=== PATIENT | male | born 1955 | race Caucasian/White ===

== ENCOUNTER 2019-07-07 09:20 | Outpatient (REF) | payer OTHER, SELFPAY ==
[2019-07-07 14:26] LABS: Anion Gap 6.7 mmol/L (3-11); BUN 15 mg/dL (7-18); CO2 31.3 mmol/L (21.0-32.0); CREATININE 1.18 mg/dL (0.70-1.30); Calcium 8.8 mg/dL (8.5-10.1); Calculated LDL 150 mg/dL; Chloride 106 mmol/L (98-107); Cholesterol 218 mg/dL (50-200); Ferritin 164 ng/mL (8-388); Glucose 97 mg/dL (70-100); HDL Cholesterol 49 mg/dL (40-60); Potassium 4.9 mmol/L (3.5-5.1); Sodium 144 mmol/L (136-145); TSH 0.77 uIU/mL (0.36-3.74); Triglyceride 97 mg/dL (30-150)
== END 2019-07-07 09:40 ==
LOC: NCHCN 09:20
PROVIDERS: PCP Internal Medicine; Visit Provider Internal Medicine
DX: Z00.00 Encounter for general adult medical examination without abnormal findings (principal); E78.00 Pure hypercholesterolemia, unspecified; E66.3 Overweight; M25.561 Pain in right knee; F51.04 Psychophysiologic insomnia
CPT/HCPCS: 80048; 80061; 82728; 84443

== ENCOUNTER 2019-07-10 14:51 | Outpatient (CLI) | payer OTHER, SELFPAY ==
--- NOTE | 2019-07-10 14:39 | DI.RAD_ITS ---
EXAM: XR KNEE RT 3V AP,LAT,VAN INDICATION: right knee pain. COMPARISON: No exams were available for comparison TECHNIQUE: 2D digital imaging was performed. FINDINGS: Three views were obtained. There is marked narrowing of the medial tibiofemoral cartilaginous joint space. Possible small loose joint body seen posteriorly. No other significant abnormality seen. IMPRESSION:
== END 2019-07-10 15:11 ==
PROVIDERS: PCP Internal Medicine; Visit Provider Physician Assistant
DX: M25.561 Pain in right knee (principal); M23.41 Loose body in knee, right knee
CPT/HCPCS: 73562

== ENCOUNTER 2021-03-31 18:46 | Outpatient (REF) | payer OTHER, SELFPAY ==
[2021-04-01 16:59] LABS: PSA, Screening 0.7 ng/mL (0.0-4.5)
== END 2021-03-31 18:47 | disposition home or self-care (01) ==
LOC: NCHCN 18:46
PROVIDERS: PCP Internal Medicine; Visit Provider Internal Medicine
DX: Z00.00 Encounter for general adult medical examination without abnormal findings (principal); Z12.5 Encounter for screening for malignant neoplasm of prostate
CPT/HCPCS: 84153

== ENCOUNTER 2021-11-07 17:02 | Outpatient (REF) | payer OTHER, SELFPAY ==
[2021-11-09 12:35] LABS: COVID-19 RT-PCR UVMMC Result Negative (Negative)
== END 2021-11-07 17:03 | disposition home or self-care (01) ==
LOC: NCHCN 17:02
PROVIDERS: PCP Internal Medicine; Visit Provider Family Medicine
DX: Z20.822 Contact with and (suspected) exposure to COVID-19 (principal); J40 Bronchitis, not specified as acute or chronic
CPT/HCPCS: U0003

== ENCOUNTER 2022-02-11 11:21 | Outpatient (REF) | payer OTHER, SELFPAY ==
[2022-02-11 15:02] LABS: Abs Immature Grans 0.01 10^3/uL (0.0-0.06); Absolute Basophil Count 0.05 10^3/uL (0.0-0.2); Absolute Eosinophil Count 0.39 10^3/uL (0.0-0.7); Absolute Lymphocyte Count 1.75 10^3/uL (1.2-3.4); Absolute Monocyte Count 0.56 10^3/uL (0.1-0.8); Absolute Neutrophil Count 3.07 10^3/uL (1.2-6.7); Basophils % 0.9; Eosinophils % 6.7; HCT 44.2 % (40.0-50.0); HGB 14.4 g/dL (13.5-17.5); Immature Grans % 0.2; MCHC 32.6 % (32.0-36.0); MCV 95 fL (80-95); MPV 10.5 fL (8.0-11.0); Monocytes % 9.6; Neutrophils % 52.6; Platelet Count 285 10^3/uL (130-400); RBC 4.64 10^6/uL (4.36-5.78); RDW 12.3 % (11.8-14.1); RDW-SD 42.3 fL; WBC 5.83 10^3/uL (4.4-10.8)
[2022-02-11 15:07] LABS: ESR 13 mm/hr (0-20)
[2022-02-11 15:52] LABS: ALT 22 U/L (16-63); AST 14 U/L (15-37); Albumin 3.8 g/dL (3.4-5.0); Alkaline Phosphatase 73 U/L (46-116); Anion Gap 6.4 mmol/L (3-11); BUN 11 mg/dL (7-18); Bilirubin, Total 0.5 mg/dL (0.2-1.0); CO2 29.6 mmol/L (21.0-32.0); Calcium 8.6 mg/dL (8.5-10.1); Chloride 106 mmol/L (98-107); Glucose 96 mg/dL (74-106); Potassium 4.8 mmol/L (3.5-5.1); Sodium 142 mmol/L (136-145); Total Protein 6.9 g/dL (6.4-8.2)
== END 2022-02-11 11:22 | disposition home or self-care (01) ==
LOC: NCHCN 11:21
PROVIDERS: PCP Family Medicine; Visit Provider Family Medicine
DX: R19.7 Diarrhea, unspecified (principal)
CPT/HCPCS: 80053; 85652; 85025

== ENCOUNTER 2022-02-12 07:59 | Outpatient (REF) | payer OTHER, SELFPAY ==
[2022-02-12 12:29] LABS: C Diff PCR Negative (Negative)
== END 2022-02-12 08:00 | disposition home or self-care (01) ==
LOC: NCHCN 07:59
PROVIDERS: PCP Family Medicine; Visit Provider Family Medicine
DX: R19.7 Diarrhea, unspecified (principal)
CPT/HCPCS: 87329; 87493; 83630; 87177

== ENCOUNTER 2022-11-03 08:50 | Outpatient (REF) | payer BC, SELFPAY ==
--- OUTSIDE RECORDS SUMMARY | 2022-11-03 08:55 | XMS_ITS ---
:1955 Author Organization [facility] Address [address], [place] [id number] Care Team Providers Name Role Phone UmanzorErik mccarthy Unavailable Unavailable PROBLEMS Type Condition ICD9-CM [id number] Onset Condition SNOMED Cod e Code Code Dates Status Problem ALLERGIC RHINITIS 477.8 Active 61 499879 NEC Problem Yeast infection 112.9 Active 7804 8006 Problem Gastroesophageal 530.81 Active 235 672187 reflux disease Problem RHINITIS DUE TO 477.0 Active 2171 9001 POLLEN Problem Allergic rhinitis 477.2 Active 15 [id number] due to cat or dog Problem Postnasal drip 784.91 Active 82787 007 Problem ALLERGIC RHINITIS 477.9 Active 61 104741 NOS Problem Shortness of breath R06.02 Active 928942419 Problem Allergic rhinitis J30.1 Active due to pollen, unspecified seasonality Problem GERD 530.81 Active (gastroesophageal reflux disease) Problem Acute allergic J30.1 Active rhinitis due to pollen Problem 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 989610028 neuronitis Problem Allergic rhinitis J30.1 Active 21 566576 due to pollen Problem Postnasal drip R09.82 Active 41791 007 Problem Tinnitus H93.19 Active 26059849 Problem Coated tongue K14.3 Active 535242 000 ALLERGIES Substance Reaction Event Type Date Status ENVIRONMENTAL Unknown Non Drug Allergy Dec, Active ENCOUNTERS Encounter Location Date Diagnosis N E [address], Oct, Allerg ic rhinitis due to [facility] [address] polle [address] J30.[address] [facility] [id number] [place] [address], Oct, Allerg ic rhinitis due to [facility] [address] polle n, unspecified [facility] [place] seasonality J30.1 [id number] N E [address], Oct, [facility] [address] [facility] [id number] N E [address], Aug, Allerg ic rhinitis due to [facility] [address] polle n J30.1 [facility] [id number] N E [address], Aug, Allerg ic rhinitis due to [facility] [address] polle n, unspecified [facility] [place] seasonality J30.1 [id number] N [place] [address], Aug, [facility] [address] [facility], [place] [id number] N E [address], Aug, Allerg ic rhinitis due to [facility] [address] polle n, unspecified [facility] seasonality J30.1 [id number] N [place] [address], Aug, [facility] [address] [facility], [place] [id number] [place] [address], Jul, Allerg ic rhinitis due to [facility] [address] polle n, unspecified [facility] seasonality J30.1 [id number] N E [address], Jun, Allerg ic rhinitis due to [facility] [address] polle n J30.1 Phan Chavez [place] [id number] [address] [place] [address], Jun, Allerg ic rhinitis due to [facility] [address] polle n, unspecified [facility] seasonality J30.1 [id number] N [place] [address], Jun, [facility] [address] [facility] [place] [id number] [place] [address], May, Allerg ic rhinitis due to [facility] [address] polle n J30.1 [facility] [id number] N E [address], Apr, Allerg ic rhinitis due to [facility] [place] [address] [address] polle n, unspecified [facility] seasonality J30.1 [id number] N E [address], Apr, [facility] [address] [facility] [place] [id number] N [place] [address], February, Allerg ic rhinitis due to [facility] [address] polle n J30.1 [facility] [id number] N [place] [address], February, Allerg ic rhinitis due to [facility] [place] [address] [address] polle n, unspecified [facility] seasonality J30.1 [id number] N [address] [place] [address], February, [facility] [address] [place] [id number] [address] [place] [address], Jan, Allerg ic rhinitis due to [facility] [address] polle n, unspecified [facility] [place] seasonality J30.1 [id number] N [address] [place] [address], Jan, Allerg ic rhinitis due to [facility] [address] polle n J30.1 [facility] [place] [id number] N [place] [address], Dec, Allerg ic rhinitis due to [facility] [address] polle n, unspecified Phan Chavez [place], [place] seasonality J30.1 [id number] [place] [address], Dec, [facility] [address] Phan [place] [id number] [place] [address], Nov, Acute allergic rhinitis due [facility] [address] to po llen J30.1 and Throat Phan Chavez [place], [place] clearing R68 .89 [id number] [address] [place] [address], Oct, Allerg ic rhinitis due to [facility] [address] polle n J30.1 Phan Chavez [place] [id number] [address], Oct, Allerg ic rhinitis due to [facility] [place] [address] [address] polle n, unspecified Phan Chavez [place] seasonality J30.1 [id number] [place] [address], Oct, [facility] [address] Phan Chavez [place] [id number] [address], Sep, Allerg ic rhinitis due to [facility] [address] polle n J30.1 Phan Chavez [place] [id number] [address], Aug, Allerg ic rhinitis due to [facility] [address] polle n, unspecified Phan Chavez [place] seasonality J30.1 [id number] [place] [address], Aug, [facility] 5 [address] Phan Chavez [place] [id number] [address], Jul, Allerg ic rhinitis due to [facility] [address] polle n J30.1 Phan Chavez [place] [id number] [address], Jun, Allerg ic rhinitis due to [facility] [address] polle n J30.1 [place]. Kishan [place] [id number] [place] [address], Jun, [facility] 5 [address] [facility] [id number] [place] [address], May, Allerg ic rhinitis due to [facility] [address] polle n J30.1 [place] [id number] [place] [address], May, Allerg ic rhinitis due to [facility] [address] polle n J30.[address] [facility], [place] [id number] [place] [address], Apr, [facility] 5 [address] H. Kishan Chavez [place] [id number] [place] [address], February, Allerg ic rhinitis due to [facility] [address] polle n J30.1 [place]. Kishan [place] [id number] [place] [address], February, Allerg ic rhinitis due to [facility] 5 [address] polle n J30.1 [place] [place] [id number] [place] [address], February, [facility] [address] [facility], [place] [id number] [place] [address], February, [facility] 5 [address] [facility], [place] [id number] [place] [address], Dec, Allerg ic rhinitis due to [facility] [address] polle n J30.1 [place] [id number] [place] [address], Dec, Allerg ic rhinitis due to [facility] [address] polle n J30.1 [facility] [id number] [place] [address], Oct, Allerg ic rhinitis due to [facility] [place] [address] [address] polle n, unspecified [place] seasonality J30.1 and [id number] Allergic rhiniti s due to pollen J30.1 N [place] [address], Oct, Allerg ic rhinitis due to [facility] [place] [address] [address] polle n J30.1 [place] [id number] [address], Oct, Allerg ic rhinitis due to [facility] [place] [address] [address] polle n J30.1 [place] [id number] [address], Aug, Allerg ic rhinitis due to [facility] [place] [address] [address] polle n J30.1 [place] [id number] [address], Aug, Allerg ic rhinitis due to [facility] [place] [address] [address] polle n J30.1 Phan Holley [place], [place] [id number] [address], Jun, Tinnit us H93.19 [facility] [place] [address] [address] Phan [place] [id number] N E [address], Jun, Allerg ic rhinitis due to [facility] [place] [address] [address] polle n, unspecified [facility] [place] [facility] J30.1 ; [id number] Allergic rhiniti s due to pollen J30.1 ; T innitus H93.19 and Coate d tongue K14.3 N [address], Jun, Allerg ic rhinitis due to [facility] [place] [address] [address] polle n, unspecified [place] seasonality J30.1 [id number], Apr, Allerg ic rhinitis due to [facility] [place] [address] [address] polle n J30.1 [facility]. [facility] [place] [id number] [address], Apr, Allerg ic rhinitis due to [facility] 5 [address] polle n J30.1 [place] [id number] [address], February, Allerg ic rhinitis due to [facility] [place] [address] [address] polle n J30.1 [place] [place] [id number] [address], February, Allerg ic rhinitis due to [facility] [place] [address] [address] polle n J30.[address] [facility], [place] [id number] [address], Dec, Allerg ic rhinitis due to [facility] [place] [address] [address] polle n J30.1 [place]. Kishan [place] [id number] [address], Dec, Allerg ic rhinitis due to [facility] [place] [address] [address] polle n J30.1 [place]. Kishan [place] [id number] [address], Oct, Allerg ic rhinitis due to [facility] [place] [address] [address] polle n J30.1 [place] [id number] [address], Oct, Allerg ic rhinitis due to [facility] [place] [address] [address] polle n J30.1 [place] [place] [id number] [address], Aug, Allerg ic rhinitis due to [facility] 5 [address] polle n J30.[address] [facility] [facility] [id number] [address], Aug, Allerg ic rhinitis due to [facility] 5 [address] polle n J30.1 Phan [place] [id number] [address], Jul, Allerg ic rhinitis due to [facility] 5 [address] polle n J30.1 [place]. Kishan Ch[place] [id number] [place] [address], Jun, Allerg ic rhinitis due to [facility] 5 [address] polle n J30.1 [place] [place] [id number] [place] [address], Jun, Allerg ic rhinitis due to [facility] [address] polle n J30.1 [place]. Kishan Ch[place] [id number] [place] [address], May, Allerg ic rhinitis due to [facility] 5 [address] polle n J30.1 [place]. Kishan Ch[place] [id number] [address], May, Allerg ic rhinitis due to [facility] 5 [address] polle n J30.1 [place]. Kishan Ch[place] [id number] [place] [address], May, [facility] 5 [address] [place] Kishan Chavez [place] [id number] [place] [address], May, Allerg ic rhinitis due to [facility] 5 [address] polle n J30.1 [place]. Kishan Chavez [place] [id number] [place] [address], May, [facility] 5 [address] [place] Kishan Ch[place] [id number] [place] [address], Apr, Allerg ic rhinitis due to [facility] [address] aller gen J30.9 [place]. Kishan Chavez [place] [id number] [place] [address], Apr, [facility] 5 [address] [place] Kishan Chavez [place], [place] [id number] [place] [address], Mar, Allerg ic rhinitis due to [facility] 5 [address] polle n J30.1 [place]. Kishan Chavez [place] [id number] [place] [address], February, Allerg ic rhinitis due to [facility] 5 [address] polle n J30.[address] [facility], [place] [id number] [address], February, Allerg ic rhinitis due to [facility] 5 [address] polle n J30.[address] [facility], [place] [id number] [address], Dec, Allerg ic rhinitis due to [facility] 5 [address] polle n J30.1 [place]. Kishan Ch[place] [id number] [address], Nov, Allerg ic rhinitis due to [facility] [place] [address] [address] polle n J30.1 Phan Chavez [place] [id number] N [address], Nov, Allerg ic rhinitis due to [facility] [place] [address] [address] polle n J30.[address] [facility] [id number] [place] [address], Sep, Allerg ic rhinitis due to [facility] 5 [address] polle n J30.1 [facility] [place] [id number] [address], Aug, Allerg ic rhinitis due to [facility] 5 [address] polle n J30.1 [place] [id number] [place] [address], Jul, Allerg ic rhinitis due to [facility] 5 [address] polle n J30.1 [place]. Kishan Ch[place] [id number] [place] [address], May, Allerg ic rhinitis due to [facility] 5 [address] polle n J30.1 Phan Chavez [place] [id number] [place] [address], Apr, Allerg ic rhinitis due to [facility] [address] polle n J30.1 Phan Taylor [place] [id number] [place] [address], Apr, Allerg ic rhinitis due to [facility] [address] polle n J30.1 Phan Taylor [place] [id number] [address] Mar, Allergic rhinit is due to [address], [place] [id number] [address] February, Allergic rhinit is due to [address] [id number] [place] [address], Dec, Allerg ic rhinitis due to [facility] [address] polle n J30.1 Phan [place] [id number] [place] [address], Oct, Shortn ess of breath R06.02 [facility] [address] ; Pos tnasal drip R09.82 and SultanaAraceli Kishan Kathy [place] Allergic rhi nitis due to [id number] pollen J30.1 [place] [address], Oct, Allerg ic rhinitis due to [facility] [address] polle n J30.1 Phan Chavez [place], [place] [id number] [place] [address], Sep, Allerg ic rhinitis due to [facility] [address] polle n J30.1 Phan Chavez [place], [place] [id number] [place] [address], Sep, Allerg ic rhinitis due to [facility] 5 [address] polle n J30.1 Phan Chavez [place] [id number] [place] [address], Aug, Allerg ic rhinitis due to [facility] [address] polle n J30.1 Phan Holley [place], [place] [id number] [place] [address], Jun, Allerg ic rhinitis due to [facility] 5 [address] polle n J30.[address] [facility] [id number] [place] [address], May, Allerg ic rhinitis due to [facility] 5 [address] polle n J30.1 [facility] [id number] [address] May, Allergic rhinit is due to [address] [id number] [place] [address], Apr, Allerg ic rhinitis due to [facility] 5 [address] polle n J30.1 Phan Chavez [place] [id number] [place] [address], Mar, Allerg ic rhinitis due to [facility] [place] [address] [address] polle n J30.[address] [facility] [id number] [place] [address], February, Postna yvonne drip R09.82 and [facility] [place] [address] [address] Aller gic rhinitis due to [facility]an [facility] [place] pollen J30.1 [id number] [place] [address], February, Allerg ic rhinitis due to [facility] [place] [address] [address] polle n J30.[address] [facility], [place] [id number] [place] [address], Jan, Allerg ic rhinitis due to [facility] [place] [address] [address] polle n J30.[address] [facility], [place] [id number] [place] [address], Dec, Allerg ic rhinitis due to [facility] 5 [address] polle n J30.1 Phan [place] [id number] [place] [address], Nov, Allerg ic rhinitis due to [facility] 5 [address] polle n J30.[address] [facility] [id number] [place] [address], Oct, Allerg ic rhinitis due to [facility] 5 [address] polle n J30.1 [facility] [id number] [place] [address], Sep, Allerg ic rhinitis due to [facility] [place] [address] [address] polle n J30.1 [facility] [id number] [address], Aug, Allerg ic rhinitis due to [facility] [place] [address] [address] polle n J30.1 [facility] [id number] [address], Jul, Allerg ic rhinitis due to [facility] [place] [address] [address] polle n J30.[address] [facility] [id number] [address], Jul, Allerg ic rhinitis due to [facility] [place] [address] [address] polle n J30.1 Phan Chavez [place] [id number] [address], Jun, Allerg ic rhinitis due to [facility] [place] [address] [address] polle n J30.1 Phan [place]avez [place] [id number] [address], May, Allerg ic rhinitis due to [facility] [place] [address] [address] polle n J30.[address] [facility] [id number] [address], May, Allerg ic rhinitis due to [facility] [place] [address] [address] polle n J30.1 [facility] [id number] [address], Apr, Allerg ic rhinitis due to [facility] [place] [address] [address] polle n J30.[address] [facility], [place] [id number] [address], Mar, Postna yvonne drip R09.82 ; [facility] [place] [address] [address] Aller gic rhinitis due to Phan [facility], [place] pollen J30.1 and Allergic [id number] rhinitis due to pollen 477.[address], February, Allerg ic rhinitis due to [facility] 5 [address] polle n 477.0 [place] [id number] [address], Jan, Allerg ic rhinitis due to [facility] 5 [address] polle n J30.1 Phan Chavez [place] [id number] [address], Jan, Allerg ic rhinitis due to [facility] 5 [address] polle n J30.1 [place] [id number] [address], Dec, Allerg ic rhinitis due to [facility] [address] polle n J30.1 [place] [id number] [address] Nov, Allergic rhinit is due to [address] [id number] [address], Oct, Allerg ic rhinitis due to [facility] 5 [address] polle n J30.1 [place] [id number] [address], Aug, Allerg ic rhinitis due to [facility] [address] aller gen J30.9 [place] [id number] [address], Aug, Allerg ic rhinitis due to [facility] [address] aller gen J30.9 and [place] Postnasal dr ip R09.[id number], Jul, Allerg ic rhinitis due to [facility] [address] aller gen J30.9 [place] [id number] [address] Jul, Allergic rhinit is due to [address] [id number] [address], Jun, Allerg ic rhinitis due to [facility] [address] aller gen 477.8 H. Kishan Ch[place] [id number] [place] [address], May, Allerg ic rhinitis due to [facility] [address] aller gen 477.8 H. Kishan Chavez [place] [id number] [place] [address], May, Allerg ic rhinitis due to [facility] 5 [address] aller gen 477.8 [facility] [place] [id number] [place] [address], Apr, Allerg ic rhinitis due to [facility] 5 [address] aller gen 477.8 [facility] [place] [id number] [place] [address], Mar, Allerg ic rhinitis due to [facility] [place] [address] [address] aller gen 477.8 H. Kishan Chavez [place], [place] [id number] [place] [address], Mar, Allerg ic rhinitis due to [facility] 5 [address] aller gen 477.8 [facility] [place] [id number] [place] [address], February, Allerg ic rhinitis due to [facility] 5 [address] aller gen 477.8 [facility] [place] [id number] [address] Jan, Allergic rhinit is due to [address], [place] [id number] [place] [address], Jan, ALLERG IC RHINITIS NOS 477.9 [facility] [address] and P ostnasal drip 784.91 Phan Chavez [place], [place] [id number] [place] [address], Jan, ALLERG IC RHINITIS NEC 477.8 [facility] [address] H[address] Kishan [place]avez [place] [id number] [place] [address], Dec, Allerg ic rhinitis due to [facility] [address] aller gen 477.8 H. Kishan Chavez [place] [id number] [place] [address], Dec, Allerg ic rhinitis due to [facility] [address] aller gen 477.8 H. Kishan Chavez [place] [id number] [place] [address], Dec, Allerg ic rhinitis due to [facility] 5 [address] aller gen 477.8 H. Kishan Chavez [place] [id number] [place] [address], Nov, Allerg ic rhinitis due to [facility] [place] [address] [address] aller gen 477.8 H. Kishan [place] [id number] [place] [address], Nov, Allerg ic rhinitis due to [facility] [place] [address] [address] aller gen 477.8 [facility] [place] [id number] [address] Oct, [address] [id number] [place] [address], Oct, ALLERG IC RHINITIS NOS 477.9 [facility] 5 [address] and P ostnasal drip 784.91 [facility] [id number] [place] [address], Oct, Allerg ic rhinitis due to [facility] 5 [address] aller gen 477.8 [facility] [place] [id number] [place] [address], Oct, ALLERG IC RHINITIS NEC 477.8 [facility] 5 [address] [facility] [id number] [place] [address], Sep, Allerg ic rhinitis due to [facility] 5 [address] aller gen 477.8 H. Kishan [place] [id number] [place] [address], Sep, Allerg ic rhinitis due to [facility] 5 [address] aller gen 477.8 H. Kishan Buildi [place] [id number] [place] [address], Sep, Allerg ic rhinitis due to [facility] 5 [address] aller gen 477.8 H. Kishan [place]avez [place] [id number] [address], Sep, Allerg ic rhinitis due to [facility] 5 [address] aller gen 477.8 H. Kishan [place]avez [place] [id number] [address], Sep, Allerg ic rhinitis due to [facility] [place] [address] [address] aller gen 477.8 H. [place]an [place] [id number] [address], Aug, Allerg ic rhinitis due to [facility] 5 [address] aller gen 477.8 H. [place]an [place] [id number] [address], Aug, Allerg ic rhinitis due to [facility] 5 [address] aller gen 477.8 H. Kishan [place]avez [place] [id number] [address], Aug, Allerg ic rhinitis due to [facility] 5 [address] aller gen 477.8 H. [place]an [place] [id number] [address], Aug, Allerg ic rhinitis due to [facility] [place] [address] [address] aller gen 477.8 H. Kishan [place]avez [place] [id number] [address] Jul, [address] [id number] [place] [address], Jul, [facility] 5 [address] hPan [place] [id number] [address], Jul, ALLERG IC RHINITIS NOS 477.9 [facility] 5 [address] ; Gas troesophageal reflux Phan [place] disease 530. 81 and [id number] Postnasal drip [address] Jul, ALLERGIC RHINIT IS NEC [address] [id number] [place] [address], Jul, Allerg ic rhinitis due to [facility] 5 [address] aller gen 477.8 H. Kishan [place]avez [place] [id number] [place] [address], Jul, Allerg ic rhinitis due to [facility] 5 [address] aller gen 477.8 H. Kishan [place]avez [place] [id number] [place] [address], Jul, Allerg ic rhinitis due to [facility] 5 [address] aller gen 477.8 [facility] [id number] [place] [address], Jun, Allerg ic rhinitis due to [facility] 5 [address] aller gen 477.8 [facility] [id number] [place] [address], Jun, Allerg ic rhinitis due to [facility] 5 [address] aller gen 477.8 [facility] [place] [id number] [place] [address], Jun, Allerg ic rhinitis due to [facility] 5 [address] aller gen 477.8 [facility] [place] [id number] [place] [address], Jun, Allerg ic rhinitis due to [facility] 5 [address] aller gen 477.8 H. Kishan [place]avez [place] [id number] [place] [address], Jun, Allerg ic rhinitis due to [facility] 5 [address] aller gen 477.8 [facility] [place] [id number] [place] [address], May, Allerg ic rhinitis due to [facility] 5 [address] aller gen 477.8 [facility] [place] [id number] [address] May, Allergic rhinit is due to [address], [place] [id number] [place] [address], May, Allerg ic rhinitis due to [facility] [address] aller gen 477.8 H. Kishan [place]avez [place] [id number] [address] Apr, [address] [id number] [place] [address], Apr, ALLERG IC RHINITIS NOS 477.9 [facility] 5 [address] and P ostnasal drip 784.91 HAraceli [place] [id number] [place] [address], Apr, [facility] 5 [address] HAraceli [place] [id number] [address] Apr, ALLERGIC RHINIT IS NEC [address] [id number] [place] [address], Apr, Allerg ic rhinitis due to [facility] 5 [address] aller gen 477.8 [facility] [id number] [place] [address], Mar, Allerg ic rhinitis due to [facility] 5 [address] aller gen 477.8 H. Kishan [place]avez [place] [id number] [address] Mar, Allergic rhinit is due to [address], [place] [id number] [place] [address], Mar, Allerg ic rhinitis due to [facility] 5 [address] aller gen 477.8 H. Kishan [place]avez [place] [id number] [place] [address], Mar, Allerg ic rhinitis due to [facility] 5 [address] aller gen 477.8 H. Kishan Chavez [place] [id number] [place] [address], Mar, Allerg ic rhinitis due to [facility] 5 [address] aller gen 477.8 H. Kishan [place]avez [place] [id number] [place] [address], February, Allerg ic rhinitis due to [facility] 5 [address] [facility] [id number] [place] [address], February, Allerg ic rhinitis due to [facility] 5 [address] aller gen 477.8 H. Kishan [place]avez [place] [id number] [place] [address], February, Allerg ic rhinitis due to [facility] 5 [address] aller gen 477.8 [facility] [id number] [place] [address], Jan, Allerg ic rhinitis due to [facility] 5 [address] aller gen 477.8 H. Kishan [place]avez [place] [id number] [place] [address], Jan, Allerg ic rhinitis due to [facility] 5 [address] aller gen 477.8 H. Kishan [place]avez [place] [id number] [address] Jan, ALLERGIC RHINIT IS NOS 477.[address] ip 784.91 [address], [place] [id number] [address] Jan, [address] [id number] [place] [address], Jan, ALLERG IC RHINITIS NEC 477.8 [facility] 5 [address] H[address] Kishan [place]avez [place] [id number] [place] [address], Jan, Allerg ic rhinitis due to [facility] 5 [address] aller gen 477.8 H. Kishan Chavez [place] [id number] [place] [address], Dec, Allerg ic rhinitis due to [facility] 5 [address] aller gen 477.8 H. Kishan Chavez [place] [id number] [place] [address], Dec, Allerg ic rhinitis due to [facility] 5 [address] aller gen 477.8 [facility] [id number] [place] [address], Dec, Allerg ic rhinitis due to [facility] 5 [address] aller gen 477.8 [facility] [place] [id number] [place] [address], Dec, Allerg ic rhinitis due to [facility] 5 [address] aller gen 477.8 [facility] [id number] [place] [address], Dec, Allerg ic rhinitis due to [facility] 5 [address] aller gen 477.8 [facility] [id number] [place] [address], Nov, Allerg ic rhinitis due to [facility] 5 [address] aller gen 477.8 [facility] [id number] [place] [address], Nov, Allerg ic rhinitis due to [facility] 5 [address] aller gen 477.8 [facility] [id number] [place] [address], Nov, Allerg ic rhinitis due to [facility] 5 [address] aller gen 477.8 [facility] [id number] [place] [address], Nov, Allerg ic rhinitis due to [facility] 5 [address] aller gen 477.8 [facility] [id number] [place] [address], Oct, ALLERG IC RHINITIS NOS 477.9 [facility] 5 [address] and P ostnasal drip 784.91 [facility] [id number] [place] [address], Oct, [facility] 5 [address] [facility] [id number] [address] Oct, ALLERGIC RHINIT IS NEC 477.[address] [id number] [place] [address], Oct, Allerg ic rhinitis due to [facility] [address] aller gen 477.8 H. Kishan [place]avez [place] [id number] [place] [address], Oct, Allerg ic rhinitis due to [facility] 5 [address] aller gen 477.8 H. Kishan Chavez [place] [id number] [place] [address], Sep, Allerg ic rhinitis due to [facility] 5 [address] aller gen 477.8 [facility] [id number] [place] [address], Sep, Allerg ic rhinitis due to [facility] 5 [address] aller gen 477.8 [facility] [place] [id number] [place] [address], Sep, Allerg ic rhinitis due to [facility] [address] aller gen 477.8 H. Kishan Chavez [place], [place] [id number] [address] Sep, Allergic rhinit is due to [address], [place] [id number] [place] [address], Sep, Allerg ic rhinitis due to [facility] 5 [address] aller gen 477.8 H. Kishan Chavez [place], [place] [id number] [place] [address], Aug, Allerg ic rhinitis due to [facility] 5 [address] aller gen 477.8 H. Kishan Chavez [place] [id number] [address] Aug, Allergic rhinit is due to [address], [place] [id number] [address] Aug, Allergic rhinit is due to [address] [id number] [place] [address], Aug, ALLERG IC RHINITIS NOS 477.9 [facility] 5 [address] H. Kishan [place]avez [place] [id number] [address] Jul, ALLERGIC RHINIT IS NEC [address] [id number] [address] Jul, ALLERGIC RHINIT IS NOS 477.[address] [id number] [address] Jul, ALLERGIC RHINIT IS NEC 477.[address] [id number] [place] [address], Jul, Allerg ic rhinitis due to [facility] 5 [address] aller gen 477.8 [facility]san [facility] [id number] [place] [address], Jul, Allerg ic rhinitis due to [facility] 5 [address] aller gen 477.8 [facility] [place] [id number] [place] [address], Jun, Allerg ic rhinitis due to [facility] 5 [address] aller gen 477.8 [facility] [place] [id number] [place] [address], Jun, Allerg ic rhinitis due to [facility] [place] [address] [address] aller gen 477.8 [facility] [id number] [place] [address], May, Allerg ic rhinitis due to [facility] 5 [address] aller gen 477.8 H. Kishan Chavez [place] [id number] [address] May, Allergic rhinit is due to [address], [place] [id number] [place] [address], May, Allerg ic rhinitis due to [facility] 5 [address] aller gen 477.8 [facility] [id number] [place] [address], May, Allerg ic rhinitis due to [facility] [address] aller gen 477.8 H. Kishan Chavez [place] [id number] [address] Apr, [address] [id number] [address] Apr, ALLERGIC RHINIT IS NOS 477.[address] ip 784.91 [address], [place] [id number] [address] Apr, ALLERGIC RHINIT IS NEC 477.[address] [id number] [place] [address], Apr, Allerg ic rhinitis due to [facility] [address] aller gen 477.8 [facility] [id number] [place] [address], Apr, Allerg ic rhinitis due to [facility] 5 [address] aller gen 477.8 [facility] [id number] [place] [address], Apr, Allerg ic rhinitis due to [facility] [address] aller gen 477.8 [facility] [place] [id number] [address] Mar, Allergic rhinit is due to [address] [id number] [place] [address], Mar, Allerg ic rhinitis due to [facility] 5 [address] aller gen 477.8 H. Kishan Chavez [place] [id number] [address] Mar, Allergic rhinit is due to [address] [id number] [address] Mar, Allergic rhinit is due to [address] [id number] [address] February, Allergic rhinit is due to [address] [id number] [address] February, Allergic rhinit is due to [address] [id number] [address] February, Allergic rhinit is due to [address] [id number] [address] February, Allergic rhinit is due to [address] [id number] [address] Jan, ALLERGIC RHINIT IS NOS 477.[address] ; Postnasal drip 784.[address] GERD (gastroesop hageal [id number] reflux disease) 530.[address] Jan, ALLERGIC RHINIT IS NEC 477.[address] [id number] [address] Jan, Allergic rhinit is due to [address] [id number] [address] Jan, Allergic rhinit is due to [address] [id number] [address] Jan, Allergic rhinit is due to [address] [id number] [address] Jan, Allergic rhinit is due to [address] [id number] [address] Dec, Allergic rhinit is due to [address] [id number] [address] Dec, Allergic rhinit is due to [address] [id number] [address] Dec, Allergic rhinit is due to [address] [id number] [address] Nov, Allergic rhinit is due to [address] [id number] [address] Nov, Allergic rhinit is due to [address] [id number] [address] Nov, ALLERGIC RHINIT IS NOS 477.[address] ip 784.[address] [id number] [address] Oct, ALLERGIC RHINIT IS NEC 477.[address] [id number] [address] Oct, Allergic rhinit is due to [address] [id number] [address] Oct, Allergic rhinit is due to [address] [id number] [address] Oct, Allergic rhinit is due to [address] [id number] [address] Oct, Allergic rhinit is due to [address] [id number] [address] Oct, Allergic rhinit is due to [address] [id number] [address] Sep, Allergic rhinit is due to [address] [id number] [address] Sep, Allergic rhinit is due to [address] [id number] [address] Sep, [address] [id number] [address] Sep, Allergic rhinit is due to [address] [id number] [address] Aug, Allergic rhinit is due to [address] [id number] [address] Aug, Allergic rhinit is due to [address] [id number] [address] Aug, Allergic rhinit is due to [address] [id number] [address] Aug, ALLERGIC RHINIT IS NOS 477.[address] ip [address]84.[address] [id number] [address] Aug, ALLERGIC RHINIT IS NEC [address] [id number] [address] Jul, Allergic rhinit is due to [address] [id number] [address] Jul, Allergic rhinit is due to [address] [id number] [address] Jul, Allergic rhinit is due to [address] [id number] [address] Jul, Allergic rhinit is due to [address] [id number] [address] Jun, ALLERGIC RHINIT IS NOS 477.[address] [id number] [address] Jun, Allergic rhinit is due to [address] [id number] [address] Jun, Allergic rhinit is due to [address] [id number] [address] Jun, Allergic rhinit is due to [address] [id number] [address] May, ALLERGIC RHINIT IS NEC [address] [id number] [address] May, RHINITIS DUE TO POLLEN [address] and Allerg ic rhinitis [place] due to cat or do g 477.[id number] May, ALLERGIC RHINIT IS NEC 477.[address] ; RHINITIS DUE [place] 477.0 and Allerg ic rhinitis [id number] due to cat or do g 477.[address] Apr, ALLERGIC RHINIT IS NEC 477.[address] ; RHINITIS DUE T [place], [place] 477.0 and Allerg ic rhinitis [id number] due to cat or do g 477.[address] Apr, ALLERGIC RHINIT IS NEC 477.[address] and RHINITIS DUE TO POLL[place], [place] 477.0 [id number] Apr, RHINITIS DUE TO POLLEN [address] and Allerg ic rhinitis [address] due to cat or do g 477.[id number] Apr, ALLERGIC RHINIT IS NEC 477.[address] and RHINITIS DUE TO POLL[place], [place] 477.0 [id number] Mar, ALLERGIC RHINIT IS NEC 477.[address] ; Allergic rhini tis due to [address], [place] cat or dog 477.2 and [id number] RHINITIS DUE TO POLLEN [address] Mar, ALLERGIC RHINIT IS NEC 477.[address] ; RHINITIS DUE T [place] 477.0 and Allerg ic rhinitis [id number] due to cat or do g 477.[address] Mar, ALLERGIC RHINIT IS NEC 477.[address] ; RHINITIS DUE T O [place] 477.0 and Allerg ic rhinitis [id number] due to cat or do g 477.[address] Mar, [address] [place], [place] [id number] [address] Mar, ALLERGIC RHINIT IS NEC 477.[address] and Allergic rhi nitis due [address] to cat or dog 47 7.[id number] February, ALLERGIC RHINIT IS NEC 477.[address] ; RHINITIS DUE T O [place]LL[place] 477.0 and Allerg ic rhinitis [id number] due to cat or do g 477.[address] February, Allergic rhinit is due to [address] cat or dog 477.2 ; RHINITIS [place] DUE TO POLLEN 47 7.0 and [id number] ALLERGIC RHINITI S NEC 477.[address] February, ALLERGIC RHINIT IS NEC 477.[address] RHINITIS D[place] 477.0 [id number] February, ALLERGIC RHINIT IS NEC 477.[address] ; RHINITIS DUE [place] 477.[address] and Allerg ic rhinitis [id number] due to cat or do g 477.[address] February, ALLERGIC RHINIT IS NEC 477.[address] ; RHINITIS DUE [place] 477.0 and Allerg ic rhinitis [id number] due to cat or do g 477.[address] Jan, ALLERGIC RHINIT IS NEC 477.[address] ; RHINITIS DUE [place] 477.[address] and Allerg ic rhinitis [id number] due to cat or do g 477.[address] Jan, ALLERGIC RHINIT IS NEC 477.[address] ; RHINITIS DUE T [place] 477.0 and Allerg ic rhinitis [id number] due to cat or do g 477.[address] Jan, Allergic rhinit is due to [address] cat or dog 477.2 ; ALLERGIC [place] RHINITIS NEC 477 .8 and [id number] RHINITIS DUE TO POLLEN [address] Jan, ALLERGIC RHINIT IS NEC [address] and Allergic rhi nitis due [address] to cat or dog 47 7.[id number] Dec, ALLERGIC RHINIT IS NEC [address] ; RHINITIS D[place] 477.[address] and Allerg ic rhinitis [id number] due to cat or do g 477.[address] Dec, ALLERGIC RHINIT IS NEC [address] ; RHINITIS D[place] 477.[address] and Allerg ic rhinitis [id number] due to cat or do g 477.[address] Dec, ALLERGIC RHINIT IS NEC [address] ; RHINITIS D[place] 477.[address] and Allerg ic rhinitis 888091046 due to cat or do g 477.[address] Dec, [address] [id number] [address] Dec, Allergic rhinit is due to [address] 14 cat or dog 477.2 ; [place] DUE TO POLLEN 47 7.0 and [id number] ALLERGIC [place] S NEC [address] Nov, Allergic rhinit is due to [address] cat or dog 477.2 ; [place] [address] DUE [place] POLLEN 47 7.0 and [id number] ALLERGIC RH[place] S NEC 477.[address] Nov, ALLERGIC RHINIT IS NEC [address] ; Allergic rhini tis due to [address], [place] cat or dog 477.2 and [id number] [place] DUE TO POLLEN [address] Nov, ALLERGIC RHINIT IS NEC [address] ; [place] 477.[place] and Allerg ic rhinitis [id number] due to cat or do g 477.[address] Nov, ALLERGIC RHINIT IS NEC [address] ; [place] 477.[address] and Allerg ic rhinitis [id number] due to cat or do g 477.[address] Oct, ALLERGIC RHINIT IS NEC [address] ; [place] 477.[place] and Allerg ic rhinitis [id number] due to cat or do g 477.[address] Oct, ALLERGIC RHINIT IS NEC [address] ; [place] [address] 477.[place] and Allerg ic rhinitis [id number] due to cat or do g 477.[address] Oct, ALLERGIC RHINIT IS NEC [address] ; [place] 477.[place] and Allerg ic rhinitis [id number] due to cat or do g 477.[address] Oct, [place] DUE TO POLLEN [address] [address] NEC 477.[id number] Oct, [place] DUE TO POLLEN [address] 477[address] ; ALLERGIC [place] [address] NEC 477.8 and Al lergic [id number] rhinitis due to cat or dog 477.[address] Sep, ALLERGIC RHINIT [place] NEC [address] ; Vestibular cynthia ronitis [place] 386.12 and RHINI TIS DUE TO [id number] POLLEN [address] Sep, Vestibular neur onitis [address] 386.12 ; Allergi c rhinitis [address] due to cat or do g 477.2 and [id number] [place] DUE TO POLLEN [address] Sep, ALLERGIC RHINIT IS NEC [address] and [place] [address] [address] [id number] Sep, ALLERGIC RHINIT [place] NEC [address] and [place] [address] [address] [id number] Aug, Allergic rhinit is due to [address] cat or dog 477.2 [address] DUE TO POLLEN [id number] [address] Aug, ALLERGIC RHINIT IS NEC [address] ; [place] [address] [address] and Allerg ic rhinitis [id number] due to cat or do g 477.[address] Aug, Allergic rhinit is due to [address] cat or dog 477.2 ; [place] [address] DUE TO POLLEN 47 7.0 and [id number] ALLERGIC RHINIT[place] S NEC [address] 14 Aug, [address] [place] [id number] [address] Aug, [address] [place] [id number] [address] Aug, [address] [place] [id number] [address] Aug, Allergic rhinit is due to [address] cat or dog 477.2 ; [place] [address] DUE TO POLLEN 47 7.0 and [id number] ALLERGIC RHINITI S NEC [address] Jul, [address] [place] [id number] [address] Jul, ALLERGIC RHINIT IS NEC [address] ; [place] [address] and Allerg ic rhinitis [id number] due to cat or do g 477.[address] Jul, ALLERGIC RHINIT [place] NEC [address] ; [place] 477.[address] and Allerg ic rhinitis [id number] due to cat or do g 477.[address] Jul, [address] [place] [id number] [address] Jun, [address] [place] [id number] [address] Apr, [address] [place] [id number] [address] Apr, Gastroesophagea l reflux [address] disease [address] NEC 477 .[id number] Mar, [address] [id number] UNKNOWN Mar, [address] Mar, Yeast infection 112.9 ; [address], [place] disease 530.81 a nd ALLERGIC [id number] [place] NEC [address] Jan, ALLERGIC RH[place] NEC [address] and Yeast infect ion 112.9 [place] [id number] [address] Nov, Gastroesophagea l reflux [address] disease 530.81 ; Yeast [address], [place] infection 112.9 and [id number] ALLERGIC [place] S NEC [address] Oct, ALLERGIC [place] NEC [address] ; Gastroesophage al reflux [address], [place] disease 530.81 a nd Yeast [id number] infection 112.[address] Sep, Yeast infection 112.9 ; [address] disease 530.81 a nd ALLERGIC [id number] [place] NEC [address] Sep, [address] [id number] [address] Aug, [facility] [address] ; Hoarseness 784 .49 ; [place], [place] Dysphonia 784.49 ; [id number] Esophageal reflu x 530.81 and Candidiasis 112.9 IMMUNIZATIONS No Known Immunizations SOCIAL HISTORY Never Assessed REASON FOR REFERRAL FUNCTIONAL STATUS PLAN OF CARE Activity Details Future Appointment Provider Name:Pan Gonzalesrenae rodriguez, 2022-12-18 10:00:00 AM, [address] [place] [address] Drive, [address], [address], [place], [place], [id number], VITAL SIGNS Height 72 in 2021-11-14 Height 72 in 2020-07-01 Height 72 in 2019-04-10 Height 72 in 2019-03-20 Height 72 in 2017-11-01 Height 72 in 2017-02-08 Height 72 in 2015-01-14 Height 72 in 2014-10-15 Height 72 in 2014-07-30 Height 72 in 2014-04-30 Height N/A in 2014-01-19 Height N/A in 2013-10-30 Height N/A in 2013-05-02 Height N/A in 2013-01-30 Height N/A in 2012-11-07 Height 72 in 2012-03-29 Height 72 in 2012-01-13 Height 72 in 2011-11-10 Weight 215 lbs 2020-07-01 Weight 220 lbs 2019-04-10 Weight 215 lbs 2019-03-20 Weight 208 lbs 2017-11-01 Weight 212 lbs 2017-02-08 Weight 225 lbs 2015-01-14 Weight 220 lbs 2014-10-15 Weight 220 lbs 2014-07-30 Weight 220 lbs 2014-04-30 Weight 220 lbs 2014-01-19 Weight 220 lbs 2013-10-30 Weight 220 lbs 2013-05-02 Weight 222 lbs 2013-01-30 Weight 225 lbs 2012-03-29 Heart Rate 78 /min 2021-11-14 Heart Rate 80 /min 2019-04-10 Heart Rate 64 /min 2017-02-08 Heart Rate 80 /min 2015-01-14 Heart Rate 74 /min 2014-10-15 Heart Rate 68 /min 2014-07-30 Heart Rate 64 /min 2014-04-30 Heart Rate 64 /min 2014-01-19 Heart Rate 72 /min 2013-10-30 Heart Rate 72 /min 2013-05-02 Heart Rate 72 /min 2013-01-30 Heart Rate 72 /min 2012-11-07 Heart Rate 76 /min 2012-03-29 Heart Rate 76 /min 2012-01-13 Heart Rate 79 /min 2011-11-10 Heart Rate 67 /min 2011-09-25 Heart Rate 78 /min 2011-04-07 Heart Rate 72 /min 2011-03-04 Heart Rate 64 /min 2011-01-20 Heart Rate 74 /min 2010-10-21 Heart Rate 73 /min 2010-09-18 Oximetry 98 2021-11-14 Respiratory Rate 16 /min 2014-10-15 Respiratory Rate 16 /min 2013-05-02 Respiratory Rate 16 /min 2013-01-30 Respiratory Rate 16 /min 2012-11-07 Respiratory Rate 18 /min 2012-03-29 Respiratory Rate 18 /min 2012-01-13 Respiratory Rate 16 /min 2011-11-10 Respiratory Rate 16 /min 2011-04-07 Respiratory Rate 16 /min 2011-03-04 Respiratory Rate 16 /min 2011-01-20 Respiratory Rate 16 /min 2010-10-21 Respiratory Rate 16 /min 2010-09-18 BMI 29.16 kg/m2 2020-07-01 BMI 29.83 kg/m2 2019-04-10 BMI 29.16 kg/m2 2019-03-20 BMI 28.21 kg/m2 2017-11-01 BMI 28.75 kg/m2 2017-02-08 BMI 30.51 kg/m2 2015-01-14 BMI 29.83 kg/m2 2014-10-15 BMI 29.83 kg/m2 2014-07-30 BMI 29.83 kg/m2 2014-04-30 BMI 29.83 kg/m2 2014-01-19 BMI 29.83 kg/m2 2013-10-30 BMI 29.83 kg/m2 2013-05-02 BMI 30.11 kg/m2 2013-01-30 BMI 30.51 kg/m2 2012-03-29 Blood pressure systolic 118 mm Hg 2021-11-14 Blood pressure diastolic 70 mm Hg 2021-11-14 MEDICATIONS Medication Instructions Dosage Frequency Start End Duration Statu s Date Date Albuterol Inhalation every 1 puff as 4h Act penelope Sulfate HFA 108 4 hrs needed (90 Base) MCG/ACT EpiPen 2-Manan as directed May, Active 0.3 MG/0.3ML 2018 Singulair 10 mg Orally Once a 1 tablet in 24h 90 day s Active day the evening Montelukast Orally Once a TAKE 1 24h 30 days Active Sodium 10.000 day TABLET BY MOUTH EVERY EVENING EPINEPHrine 0.3 Injection as as directed Jul, doses Unknown MG/DOSE directed 2010 [facility] Orally prn 1 tablet 30 day(s) Ac tive 180 MG Azelastine HCl Nasally Twice a 1 puff in 12h 28 Sep, 90 days Active 137 MCG/SPRAY day each 2019 nostril Flonase Allergy Nasally Once a 1 spray in 24h Unknown Relief 50 day each MCG/ACT nostril Ibuprofen 200 Orally Three 1 tablet 8h Acti ve MG times a day with food or milk as needed PROCEDURES Procedure Date Ordered Result Body Site DIAGNOSTIC FLEXIBLE LARYNGOSCOPY April 07, 2011 INTRADERMAL TESTS March 29, 2012 PRICK TESTS April 10, 2019 INTRADERMAL TESTS Jul 10, 2011 INTRADERMAL TESTS Aug 08, 2012 INTRADERMAL TESTS January 30, 2013 ALLERGY INJ MULT March 15, 2013 ALLERGY INJ MULT February 03, 2016 UNLISTED ALLERGY/CLINICAL IMMUNOLOGIC SERVICE/PROC Jul 07, 2021 ALLERGY INJ MULT Jun 07, 2012 ALLERGY INJ MULT Sep 24, 2014 ALLERGY INJ MULT March 15, 2012 ALLERGY INJ MULT Jul 18, 2014 ALLERGY INJ MULT January 02, 2013 ALLERGY INJ MULT January 06, 2016 ALLERGY INJ MULT April 30, 2014 ALLERGY INJ MULT Nov 02, 2011 ALLERGY INJ MULT Nov 07, 2012 ALLERGY INJ MULT February 18, 2015 P ANTIGEN THERAPY SERV (.5ml=1 unit) 2013 ALLERGY INJ MULT May 24, 2013 ALLERGY INJ MULT Sep 20, 2017 DIAGNOSTIC FLEXIBLE LARYNGOSCOPY Sep 18, 2010 ALLERGY INJ MULT Sep 29, 2011 ALLERGY INJ MULT December 25, 2013 ALLERGY INJ MULT Aug 29, 2012 ALLERGY INJ MULT Nov 16, 2016 UNLISTED ALLERGY/CLINICAL IMMUNOLOGIC SERVICE/PROC February 27, 2022 ALLERGY INJ MULT May 04, 2017 ALLERGY INJ MULT February 05, 2014 UNLISTED ALLERGY/CLINICAL IMMUNOLOGIC SERVICE/PROC Oct 29, 2021 ALLERGY INJ MULT Oct 07, 2012 ALLERGY INJ MULT Jul 25, 2012 ALLERGY INJ MULT December 03, 2014 P ANTIGEN THERAPY SERV (.5ml=1 unit) January 25, 2013 ALLERGY INJ MULT April 10, 2013 ALLERGY INJ MULT Jul 01, 2016 ALLERGY INJ MULT February 08, 2017 ALLERGY INJ MULT Oct 09, 2013 UNLISTED ALLERGY/CLINICAL IMMUNOLOGIC SERVICE/PROC Jul 03, 2019 ALLERGY INJ MULT May 30, 2018 ALLERGY INJ MULT January 04, 2012 ALLERGY INJ MULT May 07, 2014 UNLISTED ALLERGY/CLINICAL IMMUNOLOGIC SERVICE/PROC Oct 24, 2021 ALLERGY INJ MULT Jun 03, 2015 P ANTIGEN THERAPY SERV (.5ml=1 unit) January 07, 2015 ALLERGY INJ MULT Jul 24, 2013 ALLERGY INJ MULT January 31, 2014 UNLISTED ALLERGY/CLINICAL IMMUNOLOGIC SERVICE/PROC Sep 05, 2021 ALLERGY INJ MULT April 03, 2013 ALLERGY INJ MULT April 07, 2017 ALLERGY INJ MULT Oct 25, 2012 DIAGNOSTIC FLEXIBLE LARYNGOSCOPY Nov 18, 2010 P ANTIGEN THERAPY SERV (.5ml=1 unit) Nov 02, 2011 ALLERGY INJ MULT Oct 23, 2011 ALLERGY INJ MULT May 28, 2014 ALLERGY INJ MULT January 26, 2012 ALLERGY INJ MULT Jul 18, 2012 ALLERGY INJ MULT Nov 19, 2014 ALLERGY INJ MULT Aug 22, 2018 INTRADERMAL TESTS Aug 07, 2013 ALLERGY INJ MULT Aug 21, 2013 M ANTIGEN THERAPY SERV (1ml=1unit) January 27, 2016 INTRADERMAL TESTS Jul 30, 2014 ALLERGY INJ MULT Jul 15, 2015 P ANTIGEN THERAPY SERV (.5ml=1 unit) April 18, 2014 UNLISTED ALLERGY/CLINICAL IMMUNOLOGIC SERVICE/PROC Aug 27, 2021 ALLERGY INJ MULT December 26, 2018 P ANTIGEN THERAPY SERV (.5ml=1 unit) Nov 02, 2012 ALLERGY INJ MULT February 09, 2012 ALLERGY INJ MULT Jun 11, 2014 UNLISTED ALLERGY/CLINICAL IMMUNOLOGIC SERVICE/PROC Jun 26, 2022 INTRADERMAL TESTS Oct 15, 2014 M ANTIGEN THERAPY SERV (1ml=1unit) February 08, 2017 INTRADERMAL TESTS April 30, 2014 ALLERGY INJ MULT Sep 04, 2013 ALLERGY INJ MULT April 01, 2015 ALLERGY INJ MULT Sep 12, 2012 INTRADERMAL TESTS January 13, 2012 UNLISTED ALLERGY/CLINICAL IMMUNOLOGIC SERVICE/PROC Aug 26, 2022 ALLERGY INJ MULT Dec 01, 2011 ALLERGY INJ MULT January 08, 2014 INTRADERMAL TESTS Jun 29, 2012 ALLERGY INJ MULT March 19, 2014 ALLERGY INJ MULT Oct 13, 2011 INTRADERMAL TESTS Nov 02, 2011 DIAGNOSTIC FLEXIBLE LARYNGOSCOPY Oct 21, 2010 P ANTIGEN THERAPY SERV (.5ml=1 unit) Jul 31, 2011 ALLERGY INJ MULT January 11, 2017 ALLERGY INJ MULT March 27, 2013 INTRADERMAL TESTS May 02, 2013 ALLERGY SHOT Aug 07, 2013 ALLERGY INJ MULT Oct 08, 2014 ALLERGY INJ MULT Aug 20, 2014 ALLERGY INJ MULT February 06, 2013 ALLERGY INJ MULT Jun 01, 2016 ALLERGY INJ MULT Nov 20, 2013 UNLISTED ALLERGY/CLINICAL IMMUNOLOGIC SERVICE/PROC December 24 0 OPERATIVE LARYNGOSCOPY Sep 08, 2010 ALLERGY INJ MULT Jun 22, 2012 ALLERGY INJ MULT April 25, 2012 ALLERGY INJ MULT March 04, 2016 ALLERGY INJ MULT April 08, 2016 ALLERGY INJ MULT Nov 14, 2012 ALLERGY INJ MULT January 16, 2013 ALLERGY INJ MULT Sep 30, 2015 ALLERGY INJ MULT Aug 18, 2011 ALLERGY INJ MULT Aug 06, 2014 ALLERGY INJ MULT April 04, 2012 UNLISTED ALLERGY/CLINICAL IMMUNOLOGIC SERVICE/PROC Aug 14, 2019 ALLERGY INJ MULT Nov 06, 2013 UNLISTED ALLERGY/CLINICAL IMMUNOLOGIC SERVICE/PROC February 26, 2022 ALLERGY INJ MULT February 20, 2013 ALLERGY INJ MULT May 15, 2013 ALLERGY INJ MULT Sep 03, 2014 P ANTIGEN THERAPY SERV (.5ml=1 unit) Aug 02, 2013 ALLERGY INJ MULT May 09, 2012 INTRADERMAL TESTS Oct 30, 2013 COMPREHENSIVE AUDIOMET THRESH AND SPEECH Jul 01, 2020 ALLERGY INJ MULT January 25, 2015 UNLISTED ALLERGY/CLINICAL IMMUNOLOGIC SERVICE/PROC April 22, 2020 ALLERGY INJ MULT Aug 22, 2012 ALLERGY INJ MULT December 04, 2013 ALLERGY INJ MULT Sep 15, 2011 ALLERGY INJ MULT Sep 01, 2011 ALLERGY INJ MULT Oct 21, 2016 INTRADERMAL TESTS January 14, 2015 ALLERGY INJ MULT March 06, 2013 ALLERGY INJ MULT Nov 05, 2015 ALLERGY INJ MULT December 09, 2012 ALLERGY INJ MULT Sep 17, 2014 ALLERGY INJ MULT Jun 25, 2014 ALLERGY INJ MULT May 30, 2012 ALLERGY INJ MULT February 23, 2012 UNLISTED ALLERGY/CLINICAL IMMUNOLOGIC SERVICE/PROC Jul 03, 2021 ALLERGY INJ MULT December 18, 2013 ALLERGY INJ MULT May 15, 2019 ALLERGY INJ MULT Aug 05, 2015 ALLERGY INJ MULT Sep 18, 2013 ALLERGY INJ MULT December 09, 2015 M ANTIGEN THERAPY SERV (1ml=1unit) April 25, 2018 ALLERGY INJ MULT December 27, 2012 UNLISTED ALLERGY/CLINICAL IMMUNOLOGIC SERVICE/PROC Oct 30, 2022 P ANTIGEN THERAPY SERV (.5ml=1 unit) March 29, 2012 ALLERGY INJ MULT April 02, 2014 ALLERGY INJ MULT Jul 09, 2014 ALLERGY INJ MULT December 15, 2011 ALLERGY INJ MULT March 08, 2012 PRICK TESTS Jul 10, 2011 ALLERGY INJ MULT December 13, 2017 UNLISTED ALLERGY/CLINICAL IMMUNOLOGIC SERVICE/PROC Jun 12, 2019 ALLERGY INJ MULT Jun 19, 2013 ALLERGY INJ MULT Oct 02, 2013 UNLISTED ALLERGY/CLINICAL IMMUNOLOGIC SERVICE/PROC January 01 2 ALLERGY INJ MULT May 04, 2016 ALLERGY INJ MULT Oct 17, 2012 ALLERGY INJ MULT January 23, 2013 ALLERGY INJ MULT May 25, 2014 ALLERGY INJ MULT Aug 15, 2014 ALLERGY INJ MULT January 19, 2012 ALLERGY INJ MULT April 11, 2012 ALLERGY INJ MULT Aug 11, 2011 DIAGNOSTIC FLEXIBLE LARYNGOSCOPY Aug 25, 2010 ALLERGY INJ MULT Jul 11, 2018 UNLISTED ALLERGY/CLINICAL IMMUNOLOGIC SERVICE/PROC Oct 23, 2019 ALLERGY INJ MULT Aug 16, 2013 ALLERGY INJ MULT Nov 13, 2013 P ANTIGEN THERAPY SERV (.5ml=1 unit) Jul 11, 2015 UNLISTED ALLERGY/CLINICAL IMMUNOLOGIC SERVICE/PROC May 01, 2022 ALLERGY INJ MULT Sep 02, 2015 ALLERGY INJ MULT Jun 24, 2015 ALLERGY INJ MULT Nov 01, 2012 UNLISTED ALLERGY/CLINICAL IMMUNOLOGIC SERVICE/PROC January 02 2 ALLERGY INJ MULT Jun 06, 2014 ALLERGY INJ MULT February 19, 2014 ALLERGY INJ MULT February 02, 2012 ALLERGY INJ MULT Nov 10, 2011 P ANTIGEN THERAPY SERV (.5ml=1 unit) Aug 04, 2012 DIAGNOSTIC FLEXIBLE LARYNGOSCOPY January 20, 2011 ALLERGY INJ MULT Oct 03, 2018 ALLERGY INJ MULT May 31, 2017 ALLERGY INJ MULT Aug 28, 2013 ALLERGY INJ MULT April 17, 2013 M ANTIGEN THERAPY SERV (1ml=1unit) Jul 21, 2016 P ANTIGEN THERAPY SERV (.5ml=1 unit) April 27, 2013 UNLISTED ALLERGY/CLINICAL IMMUNOLOGIC SERVICE/PROC May 04, 2022 ALLERGY INJ MULT December 17, 2014 ALLERGY INJ MULT March 05, 2014 ALLERGY INJ MULT Aug 01, 2012 ALLERGY INJ MULT Nov 24, 2011 ALLERGY INJ MULT April 25, 2018 DIAGNOSTIC FLEXIBLE LARYNGOSCOPY March 04, 2011 ALLERGY INJ MULT Jul 27, 2016 ALLERGY INJ MULT Aug 09, 2017 ALLERGY INJ MULT May 29, 2013 ALLERGY INJ MULT March 01, 2012 P ANTIGEN THERAPY SERV (.5ml=1 unit) January 15, 2014 ALLERGY INJ MULT March 20, 2019 INTRADERMAL TESTS January 19, 2014 UNLISTED ALLERGY/CLINICAL IMMUNOLOGIC SERVICE/PROC May 22, 2019 ALLERGY INJ MULT March 11, 2015 ALLERGY INJ MULT Sep 25, 2013 ALLERGY INJ MULT Sep 05, 2012 M ANTIGEN THERAPY SERV (1ml=1unit) Nov 14, 2018 ALLERGY INJ MULT January 01, 2014 ALLERGY INJ MULT April 09, 2014 ALLERGY INJ MULT Oct 07, 2011 ALLERGY INJ MULT December 22, 2011 ALLERGY INJ MULT December 14, 2016 P ANTIGEN THERAPY SERV (.5ml=1 unit) January 13, 2012 ALLERGY INJ MULT Nov 21, 2012 ALLERGY INJ MULT February 06, 2019 ALLERGY INJ MULT February 16, 2012 ALLERGY INJ MULT Jun 18, 2014 ALLERGY INJ MULT March 26, 2014 ALLERGY INJ MULT Oct 10, 2012 UNLISTED ALLERGY/CLINICAL IMMUNOLOGIC SERVICE/PROC Sep 01, 2022 ALLERGY INJ MULT May 13, 2015 M ANTIGEN THERAPY SERV (1ml=1unit) Sep 20, 2017 P ANTIGEN THERAPY SERV (.5ml=1 unit) Oct 08, 2014 ALLERGY INJ MULT Sep 12, 2013 ALLERGY INJ MULT Jul 17, 2013 ALLERGY INJ MULT March 15, 2018 INTRADERMAL TESTS Jul 31, 2011 ALLERGY INJ MULT December 29, 2011 ALLERGY INJ MULT February 01, 2018 ALLERGY INJ MULT March 20, 2013 ALLERGY INJ MULT Jun 26, 2013 P ANTIGEN THERAPY SERV (.5ml=1 unit) Jul 26, 2014 ALLERGY INJ MULT Oct 01, 2014 ALLERGY INJ MULT Jun 14, 2012 ALLERGY INJ MULT April 22, 2015 UNLISTED ALLERGY/CLINICAL IMMUNOLOGIC SERVICE/PROC Jun 25, 2022 ALLERGY INJ MULT Sep 19, 2012 UNLISTED ALLERGY/CLINICAL IMMUNOLOGIC SERVICE/PROC 2022 ALLERGY INJ MULT March 30, 2016 ALLERGY INJ MULT January 22, 2014 ALLERGY INJ MULT January 09, 2013 ALLERGY INJ MULT Oct 20, 2011 P ANTIGEN THERAPY SERV (.5ml=1 unit) Jun 29, 2012 ALLERGY INJ MULT March 08, 2017 ALLERGY INJ MULT Jul 23, 2014 ALLERGY INJ MULT February 13, 2013 OPERATIVE LARYNGOSCOPY March 26, 2011 ALLERGY INJ MULT May 03, 2012 ALLERGY INJ MULT Aug 27, 2014 INTRADERMAL TESTS Nov 07, 2012 ALLERGY INJ MULT Aug 25, 2011 ALLERGY INJ MULT Nov 27, 2013 UNLISTED ALLERGY/CLINICAL IMMUNOLOGIC SERVICE/PROC February 19, 2020 ALLERGY INJ MULT Oct 07, 2015 ALLERGY INJ MULT March 28, 2013 ALLERGY INJ MULT March 22, 2012 INTRADERMAL TESTS Aug 01, 2013 DIAGNOSTIC FLEXIBLE LARYNGOSCOPY Nov 14, 2021 ALLERGY INJ MULT Nov 05, 2014 UNLISTED ALLERGY/CLINICAL IMMUNOLOGIC SERVICE/PROC Jul 24, 2019 ALLERGY INJ MULT Jul 05, 2012 ALLERGY INJ MULT Oct 16, 2013 ALLERGY INJ MULT Aug 24, 2016 ALLERGY INJ MULT February 28, 2014 ALLERGY INJ MULT Nov 17, 2011 ALLERGY INJ MULT Jun 28, 2017 ALLERGY INJ MULT May 08, 2013 P ANTIGEN THERAPY SERV (.5ml=1 unit) Jul 26, 2013 ALLERGY INJ MULT December 31, 2014 ALLERGY INJ MULT Aug 16, 2012 ALLERGY INJ MULT Sep 08, 2011 ALLERGY INJ MULT Nov 14, 2018 ALLERGY INJ MULT Sep 21, 2016 ALLERGY INJ MULT February 28, 2013 INTRADERMAL TESTS January 30, 2013 ALLERGY INJ MULT Sep 10, 2014 ALLERGY INJ MULT May 16, 2012 ALLERGY INJ MULT March 04, 2016 UNLISTED ALLERGY/CLINICAL IMMUNOLOGIC SERVICE/PROC Jun 26, 2020 ALLERGY INJ MULT December 13, 2013 ALLERGY INJ MULT March 30, 2014 INTRADERMAL TESTS April 10, 2019 ALLERGY INJ MULT Dec 02, 2015 ALLERGY INJ MULT December 09, 2011 ALLERGY INJ MULT December 19, 2012 ALLERGY INJ MULT Nov 01, 2017 ALLERGY INJ MULT Jul 02, 2014 RESULTS Name Result Date Reference Range CULTURE ROUTINE/NOT BLOOD 2011-03-26 CULTURE ROUTINE/NOT BLOOD FUNGUS CULT & STAIN 5322M 2011-03-26 REASON FOR VISIT ENT Allergy Annual check, ENT SLIT Pickup, SLIT Mix, SLIT mix, Rx refill, Refills, SLIT Mix, SLIT pick-up, Rx Refill, SLIT Blueprint Reproducer, SLIT Mix, New SLIT VIAL, SLIT Blueprint Reproducer, SLIT Mix, SLIT Blueprint Reproducer , ENT SLIT Pickup, SLIT Mix, SLIT VIAL, Rx Refill, SLIT Blueprint Reproducer, SLIT Mix, SLIT Blueprint Reproducer, ENT Est. Pt, SLIT PU, SLIT MIX, SLIT , ENT SLIT Pickup, SLIT Mix, SLIT Mix, ENT SLIT hand picker, SLIT mix, Need Drops, ENT SLIT Maintenance hand picker, SLIT mix, Allergy Mix, SLIT PickUp, SLIT Mix, SLIT Blueprint Reproducer, Slit Mix, ENT SLIT Blueprint Reproducer, ENT SLIT Mix, Azelastine, Montelukast, ENT SLIT hand picker, ENT SLIT mix, SLIT hand picker, ENTSLIT mix, AUDIO , ENT allergy f/u, PFP Est Patient (L), pfp SLIT 1 Vial, PFP Tinnitus Discussion. Forreston Dragon Disclaimer, SLIT hand picker, SLIT mix, ENT SLIT hand picker, ENT New Serum , ENT SLIT pickup, ENT SLIT mix, ENT slit pickup, ENT slit mix, ENT slit hand picker, ENT slit mix, ENT slit hand picker, ENT slit mix, ENT slit hand picker, ENT slit hand picker, ENT slit hand picker vial 2, First SLIT Pickup, ENT SLITMIXING, EPi pen, Allergy shot/discuss options, pfp 2 vials, call back, ENT Allergy Re-Test, PFP Allergy Test, call back, ENT allergy check in, follow up, ENT allergy shot, pfp 2 vials, montelukast refill, ENT allergy shot, pfp 2 vials, ENT allergy shot, PFP Allergy Initial Injections. Forreston Dragon Disclaimer, ENT New Serum, ENT allergy shot, pfp 2 vials, ENT allergy shot, pfp 2 vials, ENT allergy shot, pfp 2 vials, ENT allergy shot, pfp 2 vials, PFP Allergy Initial Injections. Forreston Dragon Disclaimer, new serum, ENT allergy shot, pfp 2 vials, ENT allergy shot, pfp 2 vials, ENT allergyshot, pfp 2 vials, ENT check in allergies, PFP Allergy 3 month f/u. [place]on Dragon Disclaimer, ENT allergy shot, pfp 2 vials, ENT allergy shot, PFP Allergy Initial Injections. Forreston Dragon Disclaimer, ENT New Serum, ENT allergy shot, pfp 2 vials, ENT Allergy shot, pfp 2 vials, ENT Allergy shot. pfp 2 vials, ENT allergy shot. pfp 2 vials, ENT allergy shot. pfp 2 vials, ENT allergy shot. pfp 2 vials, ENT Check in with PFP. PFP Allergy 3 month f/u. Forreston Dragon Disclaimer. PFP Allergy Initial Injections. Forreston Dragon Disclaimer, ENT New Serum, ENT allergy shot. pfp 2 vials, ENT allergy shot. pfp 2 vials, ENT allergy shot. pfp 2 vials, ENT allergy shot. pfp 2 vials, ENT allergy shot. pfp 2 vials, ENT inj. . PFP Allergy Initial Injections. Forreston Dragon Disclaimer, ENT inj. . pfp 2 vials, ENT New Serum, ENT allergy shot. pfp 2 vials, ENT allergy shot. pfp 2 vials, ENT allergy shot. pfp 2 vials, ENT allergy shot. pfp 2 vials, ENT allergy shot. pfp 2 vials, ENT TW w/ PFP. PFP Allergy 3 month f/u. pfp 2 vials, ENT allergy shot. PFP Allergy Initial Injections, Starting C5 vials today. , ENT New Serum, ENT allergy shot. pfp 2 vials, ENT allergy shot. pfp 2 vials, Continue maintenance dose of 0.50ml, ENT ALLERGY SHOT-r/s'd to 12/08, ENT ALLERGY SHOT. pfp 2 vials, Continue maintenance doses of 0.50ml, ENT allergy shot. pfp 2 vials, Continue 0.50cc maintenance dose, ENT allergy shot, Continue maintenance dose of 0.50ml. pfp 2 vials, ENT allergy shot, continue maintenance dose of 0.50ml. pfp 2 vials, ENT allergy shot. PFP Allergy multi-injections, ENT TW . PFP Allergy3 month f/u, Intial injection for the test wheal was on 07/15/15, seeing Dr. Umanzor today as a test wheal, his dose for today was 0.25cc vial C4 continue maintenance ne. PFP Allergy multi-injections, Today SNOT score is 3, previously 3., ENT allergy shot. PFP Allergy multi-injections, Continue 0.50cc maintenance dose, ENT NEW SERUM, PFP Allergy multi-injections, ENT allergy shot. PFP Allergy multi- injections, continue 0.50cc maintenance dose, ENT allergy shot. PFP Allergy multi-injections, ENT allergy shot. PFP Allergy multi-injections, ENT allergy shot. PFP Allergy multi-injections, ENT allergy shot. PFP Allergy multi- injections, ENT allergy shot. PFP Allergy multi-injections, ENT allergy shot. PFP Allergy multi-injections, ENT test wheal. PFP Allergy 3 month f/u. Initial SNOT 41, previous SNOT 4, Today's 3. PFP Allergy multi test wheals, ENT test wheal, serum mix, 10cc vials per pfp, ENT Allergy Shot 2 week . PFP Allergy multi-injections, ENT Allergy Shot 2 week . PFP Allergy multi-injections, ENT Allergy Shot 2 week . PFP Allergy multi-injections, ENT Allergy Shot 2 week . PFP Allergy multi-injections, ENT Allergy Shot 2 week . PFP Allergy multi- injections, ENT TW w/ PFP. PFP Allergy 3 month f/u. PFP Allergy multi test wheals Intial Snot 41 today 4, vial c2, ENT TW w/ PFP, ENT allergy shot. PFP Allergy multi-injections, ENT- Serum, ENT allergy shot. PFP Allergy multi- injections, ENTallergy shot. PFP Allergy multi-injections, ENT allergy shot. PFP Allergy multi-injections, ENT allergy shot. PFP Allergy multi-injections, ENT allergy shot. PFP Allergy multi-injections, ENT allergy shot. PFP Allergy multi- injections, ENT allergy shot. PFP Allergy multi-injections, ENT allergy shot. P FP Allergy multi-injections, ENT allergy shot. PFP Allergy multi-injections, ENT TW w/ PFP, ENT TW w/ PFP. PFP Allergy 3 month f/u. PFP Allergy multi test wheals, ent serum, ENT allergy shot. PFP Allergy multi-injections, ENT allergy shot. PFP Allergy multi-injections, ENT allergy shot. PFP Allergy multi- injections, ENT allergy shot. PFP Allergy multi-injections, ENT allergy shot. PFP Allergy multi-injections, ENT allergy shot. PFP Allergy multi-injections, pfp blank. PFP Allergy multi-injections, ENT allergy shot. PFP Allergy multi- injections, ENT-ALLERGY SHOT. PFP Allergy multi-injections, ENT-ALLERGY SHOT. PFP Allergy multi-injections, ENT ALLERGY SHOT, ENT allergy shot, ENT allergy shot. PFP Allergy multi-injections, ENT test wheal. PFP Allergy 3 month f/u. PFP Allergy multi test wheals. PFP Allergy 3 month f/u, ENT test wheal with pfp, ent serum, ENT allergy shot. PFP Allergy multi-injections, ENT allergy shot, ENT allergy shot. PFP Allergy multi-injections, ENT allergy shot. PFP Allergy multi- injections, ENT allergy shot. PFP Allergy multi-injections, ENT allergy shot. PFP Allergy multi-injections, ENT allergy shot. PFP Allergy multi-injections, ENT allergy shot. PFP Allergy multi-injections, ENT allergy shot. PFP Allergy multi-injections, ENT allergy shot. PFP Allergy multi-injections, ENT-ALLERGY SHOT. PFP Allergy multi-injections, ENT TW w/ PFP. PFP Allergy multi test wheals. PFP allergy discussion, ENT TW w/ PFP, ent serum, ent serum, ENT allergy shot. PFP Allergy multi-injections, ENT allergy shot. PFP Allergy multi- injections, ENT allergy shot. PFP Allergy multi-injections, PFP Allergy multi- injections, PFP Allergy multi-injections, ENT allergy shot. PFP Allergy multi-injections, ENT allergy shot, ENT allergy shot, ENT allergy shot, ENT allergy shot, ENT test wheal, ENT testwheal with pfp, ent serum, ENT allergy shot, ENT allergy shot, ENT allergy shot, ENT allergy shot, ent-allergy shot, ENT allergy shot, ENT allergy shot, ent-allergy shot, ENT allergy shot, ent TW no pfp, ent serum, ENT test wheal no pfp, ENT allergy shot, ent serum, ENT allergy shot, ENT allergy shot,ENT allergy shot, ent shot, ent-allergy shot, ent-allergy shot, ent-allergy shot, ENT allergy shot, ENT allergy shot, ent- allergy shot, ent TW, entTW/pfp, ent serum, ENT allergy shot, ENT allergy shot, ent-allergy shot, ENT SHOT, ENT allergy shot, ent-2 allergy shots, ent-allergy shot, ent-2 allergy shot, ent-2 allergy shot, ent-allergy shot, ent-allergy shot, ent-allergy shot, ent-test wheal, ent-test wheal, ent serum, ent-allergy shot, ENT-Allergy Shot, ENT-Allergy Shot, ENT-Allergy Shot, ENT-Allergy Shot, ENT-Allergy Shot, ENT-Allergy Shot, ENT-Allergy Shot, ENT-Allergy Shot, ENT- TestWheal PFP.serum 11-02-12, ent TW/PFP, ent new allergy serum, allergy shot, allergy shot, allergy shot, allergy shot, allergy shot, allergy shot, allergy shot, allergy shot, allergy shot, allergy shot, allergy shot,ent test wheal/PFP. serum 08-04-12, ent new allergy serum, allergy shot, allergy shot, allergy shot, allergy shot, ENT TEST WHEAL/SHOT/ NO PFP, ent allergy shot, ent allergy shot, ENT SHOT, SHOT, ENT ALLERGY SHOT, ENT ALLERGY SHOT, ENT ALLERGY SHOT, ENT shot, ENT ALLERGY SHOT, ENT ALLERGY SHOT, ent allergy shot, ENT ALLERGY SHOT, ENT ALLERGY SHOT, RX Refill, ent allergy shot, ENT ALLERGY SHOT, ENT ALLERGY SHOT, ent allergy shot, ENT ALLERGY SHOT, ENT ALLERGY SHOT, ENT ALLERGY SHOT, ENT ALLERGY SHOT, ENT TEST WHEAL/PFP/SHOT, ENT ALLERGY SHOT, ENT ALLERGY SHOT, ent allergy shot, ENT ALLERGY SHOT, ENT ALLERGY SHOT, ent allergy shot, ENT ALLERGY SHOT, ENT SHOT, est pt all inj also, ENT TEST WHEAL/PFP/SHOT, ENT ALLERGY SHOT, ent allergy shot, ENT ALLERGY SHOT, ENT ALLERGY SHOT, ent allergy shot, ent , e nt allergy shot, ent allergy shot, ent allergy shot, ENT ALLERGY SHOT, ENT ALLERGY SHOT, ENT ALLERGYSHOT, refill singulair, ERIC SIGULAIR, ENT ALLERGY SHOT, ENT ALLERGY SHOT, ent seeing pfp first TESTWHEEL, ent allergy questions, ENT ALLERGY TESTING, ENT ALLERGY TESTING, ENT ALLERGY TESTING, ENT ALLERGY TESTING, Medication refill, Singular, ENT SURGERY FU, ENT SURGERY FU, ENT MSDL, PRE OP CALL, ENT6 WK FU, ENT 2 MTH CK, ENT , ent throat F/U, ent 1 wk fu from surgery, ENT, ent sore throat Insurance Providers [facility] Health Member Patient Patient Patient Patient Patient Subscriber Subscriber Subscriber Group Insurance Plan Plan Plan Plan ID Relationship Address Phone Name Date of ID Name Date of No Type Insurance Insurance Insurance Coverage to Subscriber Address Phone Name Dates BC BS [phone] BC BS self Clay [id number] [place] [place] [address] [place] [phone] [place] self Clay [id number] [address] [place] [address] [facility] [facility] [address] [facility] - self Clay [id number] DO NOT [facility] DO NOT Lisa [facility] (Write [place] (Write Off) [place] [phone] Off)
[2022-11-03 15:08] LABS: Anion Gap 5.6 mmol/L (3-11); BUN 12 mg/dL (7-18); CO2 31.4 mmol/L (21.0-32.0); CREATININE 1.1 mg/dL (0.70-1.30); Calcium 9.1 mg/dL (8.5-10.1); Calculated LDL 185 mg/dL (<100); Chloride 104 mmol/L (98-107); Cholesterol 283 mg/dL (<200); Glucose 106 mg/dL (74-106); HDL Cholesterol 67 mg/dL (40-60); Potassium 4.8 mmol/L (3.5-5.1); Sodium 141 mmol/L (136-145); Triglyceride 157 mg/dL (<150)
== END 2022-11-03 08:51 | disposition home or self-care (01) ==
LOC: NCHCN 08:50
PROVIDERS: PCP Family Medicine; Visit Provider Family Medicine
DX: Z00.00 Encounter for general adult medical examination without abnormal findings (principal); E78.00 Pure hypercholesterolemia, unspecified; E66.3 Overweight
CPT/HCPCS: 80048; 80061

== ENCOUNTER 2023-01-04 03:44 | Outpatient (CLI) | payer BC, MEDICARE, SELFPAY ==
[2023-01-04] MEDS: Albuterol HFA 18 GM 200 PUFF INH IH (13:58)
[2023-01-04] MEDS: Inhaler, Assist Device 1 EACH MC (13:59)
--- NOTE | 2023-01-07 10:30 | W.PFT ---
Date of service: 01/04/23 Time of Service: 12:59 Pulmonary Function Test Result Indications: Sawdust inhalation, dyspnea Interpretation Spirometry: There is no airflow limitation. There is no significant bronchodilator response. Impression Normal spirometry Clinical Correlation therefore is recommended.
== END 2023-01-04 03:45 | disposition home or self-care (01) ==
LOC: RT 03:45
PROVIDERS: PCP Family Medicine; Visit Provider Physician Assistant
DX: R06.00 Dyspnea, unspecified (principal)
CPT/HCPCS: 94060

== ENCOUNTER 2024-01-27 14:50 | Outpatient (REF) | payer MEDICARE, SELFPAY ==
[2024-01-27 14:34] LABS: HCT 47.4 % (40.0-50.0); HGB 15.7 g/dL (13.5-17.5); MCH 32.2 pg (27.0-33.0); MCHC 33.1 % (32.0-36.0); MCV 97 fL (80-95); MPV 9.9 fL (8.0-11.0); Platelet Count 298 10^3/uL (130-400); RBC 4.88 10^6/uL (4.36-5.78); RDW 11.8 % (11.8-14.1); RDW-SD 42.5 fL; WBC 6.03 10^3/uL (4.4-10.8)
[2024-01-27 21:17] LABS: ALT 27 U/L (16-63); AST 15 U/L (15-37); Albumin 4.2 g/dL (3.4-5.0); Alkaline Phosphatase 73 U/L (46-116); Anion Gap 7.5 mmol/L (3-11); BUN 12 mg/dL (7-18); Bilirubin, Total 0.8 mg/dL (0.2-1.0); CO2 29.5 mmol/L (21.0-32.0); Calcium 9.3 mg/dL (8.5-10.1); Calculated LDL 185 mg/dL (<100); Chloride 107 mmol/L (98-107); Cholesterol 279 mg/dL (<200); Estimated GFR 83.01 (mL/min/1.73m2); Glucose 106 mg/dL (74-106); HDL Cholesterol 74 mg/dL (40-60); Potassium 5.3 mmol/L (3.5-5.1); Sodium 144 mmol/L (136-145); Total Protein 7.5 g/dL (6.4-8.2); Triglyceride 103 mg/dL (<150)
== END 2024-01-27 14:51 | disposition home or self-care (01) ==
LOC: NCHCN 14:50
PROVIDERS: PCP Family Medicine; Visit Provider Family Medicine
DX: E78.00 Pure hypercholesterolemia, unspecified (principal)
CPT/HCPCS: 80053; 80061; 85027

== ENCOUNTER → 2024-03-02 10:35 | Outpatient (BNVA) | payer MEDICARE, SELFPAY | PROVIDERS: PCP Family Medicine; Referring Provider Family Medicine; Visit Provider Physical Therapy Assistant | DX: Z12.11 Encounter for screening for malignant neoplasm of colon (principal) ==

== ENCOUNTER 2024-03-07 12:22 | Outpatient (REF) | payer MEDICARE, SELFPAY ==
[2024-03-07 15:40] LABS: ALT 29 U/L (16-63); AST 16 U/L (15-37)
== END 2024-03-07 12:23 | disposition home or self-care (01) ==
LOC: NCHCN 12:22
PROVIDERS: PCP Family Medicine; Visit Provider Family Medicine
DX: E78.00 Pure hypercholesterolemia, unspecified (principal)
CPT/HCPCS: 84450; 84460

== ENCOUNTER 2024-03-08 09:46 | Day surgery (SDC) | payer MEDICARE, SELFPAY ==
--- NOTE | 2024-03-08 07:10 | ANES.PREOP_ITS ---
General Info Date of Service Date Performed: 03/08/24 Height: 6 ft Weight: 97.069 kg Body Mass Index (BMI): 29.0 Surgical Procedure: Operation Date: 03/08/24 11:50 Proposed Procedure Side Surgeon austin Cottrell MD Meds Allergies and Home Medications Allergies Allergy/AdvReac Type Severity Reaction Status Date / Time Environmental Allergy Unknown Other (See Uncoded 03/08/24 10:09 Comment) Home Medication Medication Instructions Recorded fexofenadine 60 mg tablet (Patricia 60 mg PO PRN 05/28/14 Allergy) ibuprofen 100 mg tablet 200 mg PO Q6H PRN 05/28/14 naproxen 250 mg tablet 250 mg PO BID 10/09/16 azelastine 137 mcg (0.1 %) nasal 1 spray intranasal BID #30 mL 04/27/23 spray aerosol montelukast 10 mg tablet 10 mg PO DAILY 90 days #90 tabs 10/06/23 atorvastatin 20 mg tablet 20 mg PO QHS 03/02/24 bisacodyl 5 mg tablet,delayed 5 mg PO ONCE #4 tabs 03/02/24 release (Dulcolax (bisacodyl)) polyethylene glycol 3350 17 17 g PO ONCE #238 grams 03/02/24 gram/dose oral powder Current Visit Medications: Current Medications Generic Name Dose Route Start Last Admin Trade Name Freq PRN Reason Stop Dose Admin Ringer's Solution 1,000 mls @ 80 mls/hr 03/08/24 06:00 IV 03/08/24 23:59 INFUSION JACIEL IV Miscellaneous Supplies 1 each 03/08/24 06:00 Iv Access IV 03/08/24 23:59 DIRECTED JACIEL Sodium Chloride 0 ml 03/08/24 06:00 Normal Saline Flush 10 Ml Syr IV 03/08/24 23:59 PRN PRN Sodium Chloride 0 ml 03/08/24 06:00 Normal Saline 10 Ml Vial IJ 03/08/24 23:59 DIRECTED PRN Sterile Water 0 ml 03/08/24 06:00 Water,Injection,Sterile 10 Ml Vial IJ 03/08/24 23:59 DIRECTED PRN PFSH Active Problems Active Problems: Problem Status Onset Code Coated tongue K14.3 Tinnitus H93.19 Arthritis of right knee M17.11 Allergic rhinitis due to other allergen J30.89 Tendinitis of left rotator cuff 10/09/16 M75.82 Postnasal drip 03/04/16 R09.82 Postnasal drip 10/30/13 R09.82 Allergic rhinitis due to pollen 10/07/15 J30.1 Allergic rhinitis 10/30/13 J30.9 Allergic fungal sinusitis 08/28/13 J30.89, B49 Medical History Medical History High cholesterol Tobacco Smoking/Tobacco Use Status: Never Alcohol Alcohol Intake: current Alcohol intake frequency: 0-2 drinks per day Alcohol type: beer and wine Substance Use Substance use: Never Substance use type: does not use Vital Signs and Lab Results Vital Signs Most Recent Vital Signs in EMR: Temp Pulse Resp BP Pulse Ox 36.3 C L 82 20 126/87 95 03/08/24 09:50 03/08/24 09:50 03/08/24 09:50 03/08/24 09:50 03/08/24 09:50 Lab Results Blood Type / Crossmatch: No Data to Display Complete Blood Count: No Data to Display Complete Metabolic Panel: No Data to Display Liver Function Panel: Alanine Aminotransferase (ALT/SGPT) 29 U/L (16-63) 03/07/24 10: 20 Aspartate Amino Transf (AST/SGOT) 16 U/L (15-37) 03/07/24 10:20 Coagulation Panel: No Data to Display Cardiac Panel: No Data to Display Arterial Blood Gas: No Data to Display Venous Blood Gas: No Data to Display Pancreas Panel: No Data to Display Thyroid Panel: No Data to Display Infectious Disease: No Data to Display Blood Cultures: No Data to Display Toxicology Panel: No Data to Display Imaging and Studies Imaging and Studies Study information below may be from another EMR and interpreted by another provider. Please see original notes in EMR for more complete details. Pulmonary Function Summary: Date of service: 01/04/23 Time of Service: 12:59 Pulmonary Function Test Result Indications: Sawdust inhalation, dyspnea Interpretation Spirometry: There is no airflow limitation. There is no significant bronchodilator response. Impression Normal spirometry Clinical Correlation therefore is recommended. Anesthesia Assessment and Plan Anesthesia History Personal History: PONV Family History: No Family History of Anesthesia Complications Exercise Tolerance Exercise Tolerance: Metabolic Equivalents>4 Pertinent Negatives Pertinent Negatives: No Symptoms of GERD, No Major Cardiovascular Symptoms or Complaints, No Major Pulmonary Symptoms or Complaints and No History of CVA/TIA Cardiac & Pulmonary Exam Cardiac Exam: Normal S1/S2 Heart Sounds Pulmonary Exam: Clear Bilateral Breath Sounds Implantable Cardiac Device Does patient have a Pacemaker or an ICD?: No Airway Exam Known Difficult Airway: No Mallampati Class: 2 Mouth Opening: Normal (> 3cm) Thyromental Distance: Less than 3 cm Neck Range of Motion: Full ROM Neck Circumference: Normal Teeth Condition: Normal Dentition ASA Classification ASA Score: ASA 2 Emergency Case?: No NPO Status NPO Status: NPO Clears >2 hours, Solids >8 hours Anesthesia Plan Resuscitation Status: Full Code Anesthesia Technique: General Anesthesia Airway Planned: Natural Airway Monitors Used: Standard Monitors
[2024-03-08 09:50] VITALS: BP 126/87; PULSE 82; RESP 20; TEMP 36.3; O2SAT 95
[2024-03-08] MEDS: Lactated Ringers 1,000 ML 80 ML IV (10:23)
[2024-03-08 10:54] VITALS: BMI 29.0
--- NOTE | 2024-03-08 10:54 | COLE_ITS ---
Date of service: 03/08/24 Time of Service: 10:54 Colonoscopy Report Procedure Description: PROCEDURES PERFORMED: 1. Colonoscopy with cold forceps polypectomy x 3 PREOPERATIVE DIAGNOSIS: Surveillance colonoscopy POSTOPERATIVE DIAGNOSIS: Colon polyps, mild sigmoid diverticulosis SURGEON: Abdiel Cottrell MD INDICATION FOR PROCEDURE: the patient is a 68-year-old male with no symptoms. No family history of colon cancer. Prior colonoscopy was normal 10 years ago. Colonoscopy before that had some polyps reportedly. FINDINGS: Normal terminal ileum. In the transverse colon a small 2 to 3 mm sessile polyp was removed with cold forceps technique. In the sigmoid colon a 2 -3 mm sessile polyp was removed with cold forceps technique. In the rectum another 2 to 3 mm sessile polyp was removed with cold forceps technique. There were mild diverticular changes in the sigmoid colon but without any active diverticulitis or stricture. No significant hemorrhoid disease. SURVEILLANCE interval/FOLLOW-UP: 7-10 years as long as the polyps are either tubular adenomas or hyperplastic. If advanced histology, then 3 years (not expected). SPECIMENS: 3 EBL: Minimal COMPLICATIONS: None QUALITY of prep: Excellent Procedure in detail: The patient gave written consent and was in agreement with the indications, the potential risks as well as the benefits of the procedure. They were taken to the endoscopy suite and laid in the left lateral decubitus position. A timeout was performed and anesthesia was administered which was tolerated well. I started the procedure. Digital rectal and visual examination was performed and grossly within normal limits. A well-lubricated flexible colonoscope was then introduced and passed without any notable difficulty all the way to the cecum identified by the ileocecal valve and the appendiceal orifice. The terminal ileum was briefly intubated and looked normal. The scope was then slowly withdrawn with the above-noted findings. The patient tolerated the procedure well and was taken to the PACU in hemodynamically stable condition.
--- NOTE | 2024-03-08 10:55 | W.PM.DSUDISC ---
Date of service: 03/08/24 Time of Service: 10:55 Discharge Plan Disposition Patient Disposition: Home Condition: Good Discharge Details Attending Provider: Claudio Cottrell Primary Care Provider: Russell Benoit Home Meds and New Rx's Prescriptions: No Action atorvastatin 20 mg tablet 20 mg PO QHS bisacodyl [Dulcolax (bisacodyl)] 5 mg tablet,delayed release (DR/EC) 5 mg PO ONCE Qty: 4 0RF Rx Instructions: Take per colonoscopy instructions provided by ordering providers office polyethylene glycol 3350 17 gram/dose powder 17 g PO ONCE Qty: 238 0RF Rx Instructions: Take per colonoscopy instructions provided by ordering providers office fexofenadine [Patricia Allergy] 60 MG tablet 60 mg PO PRN ibuprofen 100 MG tablet 200 mg PO Q6H PRN naproxen 250 MG tablet 250 mg PO BID azelastine 137 mcg (0.1 %) aerosol,spray 1 spray intranasal BID Qty: 30 3RF Rx Instructions: administer into each nostril montelukast 10 mg tablet 10 mg PO DAILY 90 Days Qty: 90 3RF Discharge Instructions Additional Instructions: FINDINGS: Some small polyps were found and removed today. They are nothing to worry about. This is why we do the colonoscopies. You probably can do another colonoscopy in 7 to 10 years. Mild diverticular changes are seen in your colon today. This is an extremely common condition, benign and nothing needs to be done about it. Stand Alone Forms: Anesthesia Discharge Bj Richards (DSU) Activity:: Activity as Tolerated Diet:: As Tolerated
--- NOTE | 2024-03-08 11:32 | BOWEL_PTH ---
PATIENT: Clay Gonzalez LOC: [facility] U#:[id number] AGE/SX: 68/M ROOM: RE03/08/[address]: Claudio Cottrell : 1955 BED: DIS: 03/08/2024 SPEC #: [id number] RECD: 03/08/24 13:11 STATUS: [facility] #: [id number] ROSHAN: 03/08/24 11:[address]: Claudio Cottrell DEPT: Surgical Specimen RECD BY: Coco Gunter ENTERED: 03/08/24 13:12 SP TYPE: Bowel OTHR DR: Russell Benoit Tissues: 1 - BIOPSY BOWEL 2 - BIOPSY BOWEL 3 - BIOPSY BOWEL Procedures: GROSS AND MICRO LEVEL 4 Comments: [id number]
[2024-03-08 11:41] VITALS: BP 99/88; PULSE 74; RESP 16; TEMP 36.4; O2SAT 96
[2024-03-08 12:15] VITALS: BP 118/75; PULSE 75; RESP 16; TEMP 36.4; O2SAT 95
--- NOTE | 2024-03-08 12:25 | W.ANESPOSTOP ---
Postoperative Evaluation Date, Time and Location Date Performed: 03/08/24 Time Performed: 11:44 Patient Location: Day Surgery Unit Vital Signs Most Recent Imported Vital Signs: Most Recent Vital Signs Temp Pulse Resp BP Pulse Ox 36.4 C L 75 16 118/75 95 03/08/24 12:15 03/08/24 12:15 03/08/24 12:15 03/08/24 12:15 03/08/24 12:15 Pain Score Most Recent Pain Score: Most Recent Pain Score Pain Level 0 03/08/24 11:41 Assessment Mental Status: Awake (Alert & Oriented to Patient Baseline) Airway and Respiratory Function: Patent airway with normal (patient baseline) respiratory exam Cardiovascular Function: Hemodynamically Stable Hydration Status: Adequately Hydrated Nausea & Vomiting: No Nausea or Vomiting Pain: Pt. Denies Any Pain Peripheral Nerve Block: Patient did not receive a nerve block
== END 2024-03-08 12:34 | disposition home or self-care (01) ==
LOC: SUR 09:46
PROVIDERS: PCP Family Medicine; Visit Provider Student in an Organized Health Care Education/Training Program
PROC: 0DJD8ZZ Inspection of Lower Intestinal Tract, Via Natural or Artificial Opening Endoscopic (ICD-10-PCS; CPT 45378; principal; 2024-03-08 11:45)
DX: Z12.11 Encounter for screening for malignant neoplasm of colon (principal); D12.8 Benign neoplasm of rectum; K57.30 Diverticulosis of large intestine without perforation or abscess without bleeding; K63.5 Polyp of colon
CPT/HCPCS: 45380; 00123; 88305; J2704

== ENCOUNTER 2024-07-07 11:16 | Outpatient (CLI) | payer MEDICARE, SELFPAY ==
[2024-07-07 12:19] LABS: Lab Add On Test DONE
[2024-07-10 17:44] LABS: Mouse Serum Protein IgE <0.10 kU/L (<0.70)
[2024-07-14 08:57] LABS: Misc Referral (MAYO) See Comments
== END 2024-07-07 11:17 | disposition home or self-care (01) ==
LOC: LBO 11:17
PROVIDERS: PCP Family Medicine; Visit Provider Physician Assistant
DX: J30.89 Other allergic rhinitis
CPT/HCPCS: 36415; 86003

== ENCOUNTER 2024-10-30 14:43 | Outpatient (REF) | payer MEDICARE, SELFPAY ==
[2024-10-30 21:27] LABS: C-Reactive Protein 1.69 mg/dL (<or=0.5); Creatine Kinase 71 U/L (39-308)
== END 2024-10-30 14:44 | disposition home or self-care (01) ==
LOC: NCHCN 14:43
PROVIDERS: PCP Family Medicine; Visit Provider Family Medicine
DX: M79.10 Myalgia, unspecified site (principal)
CPT/HCPCS: 82550; 86140

== ENCOUNTER 2024-11-01 02:32 | Outpatient (CLI) | payer MEDICARE, SELFPAY ==
--- NOTE | 2024-11-01 | DI.RAD_ITS ---
Exam(s) XR SHOULDER RT COMPLETE 2+V EXAM: XR SHOULDER RT COMPLETE 2+V CLINICAL HISTORY: RT SHOULDER PAIN,M25.511. TECHNIQUE: 2D digital imaging was performed. COMPARISON: No exams were available for comparison FINDINGS: Five views. No evidence of acute fracture nor dislocation nor abnormal soft tissue calcifications. The subacromi al space is not diminished. There is no subluxation of the humeral head in the glenoid fossa. AC merle int appears unremarkable. Glenohumeral joint appears unremarkable. Bone density normal. No osseous lesions. IMPRESSION: No significant radiograph findings in the right shoulder. DATA REPOSITORY: RADIATION DOSE DELIVERED:
== END 2024-11-01 02:52 ==
LOC: DI 02:32
PROVIDERS: PCP Family Medicine; Visit Provider Family Medicine
DX: M25.511 Pain in right shoulder (principal)
CPT/HCPCS: 73030

== ENCOUNTER 2025-01-02 11:51 | Outpatient (REF) | payer MEDICARE, SELFPAY ==
[2025-01-02 16:59] LABS: ALT 22 U/L (16-63); AST 18 U/L (15-37); Albumin 3.6 g/dL (3.4-5.0); Alkaline Phosphatase 92 U/L (46-116); BUN 11 mg/dL (7-18); Bilirubin, Total 0.6 mg/dL (0.2-1.0); CREATININE 0.9 mg/dL (0.70-1.30); Calcium 9.1 mg/dL (8.5-10.1); Calculated LDL 88 mg/dL (<100); Chloride 106 mmol/L (98-107); Cholesterol 174 mg/dL (<200); Estimated GFR 93.61 (mL/min/1.73m2); Glucose 88 mg/dL (74-106); HDL Cholesterol 66 mg/dL (>or=40); Potassium 4.8 mmol/L (3.5-5.1); Sodium 144 mmol/L (136-145); Total Protein 7.1 g/dL (6.4-8.2); Triglyceride 100 mg/dL (<150)
== END 2025-01-02 11:52 | disposition home or self-care (01) ==
LOC: NCHCN 11:51
PROVIDERS: PCP Family Medicine; Visit Provider Family Medicine
DX: E78.00 Pure hypercholesterolemia, unspecified (principal)
CPT/HCPCS: 80053; 80061

== ENCOUNTER 2025-02-01 01:36 | Outpatient (CLI) | payer MEDICARE, SELFPAY ==
--- NOTE | 2025-02-01 | DI.RAD_ITS ---
Exam(s) XR KNEE RT 3V AP,LAT,VAN EXAM: XR KNEE RT 3V AP,LAT,VAN CLINICAL HISTORY: Unilateral primary osteoarthritis, rt knee, M17.11. TECHNIQUE: 2D digital imaging was performed of the right knee. Four views obtained. AP, lateral and PA tunnel views were obtained. COMPARISON: CR XR KNEE RT 3V AP,LAT,VAN from 07/10/2019 FINDINGS: BONES: No acute fracture is present. No bony destructive lesion is seen. JOINTS: There is marked narrowing seen in the medial femoral tibial joint. Osteophytes are seen in t he medial femoral tibial and patellofemoral joints. There is a suprapatellar joint effusion. There is again seen a density at the posterior aspect of the joint on the lateral view. SOFT TISSUE: Normal. IMPRESSION: Interval progression of the osteoarthritis of the right knee since 2019. DATA REPOSITORY: RADIATION DOSE DELIVERED:
== END 2025-02-01 01:56 ==
PROVIDERS: PCP Family Medicine; Visit Provider Family Medicine
DX: M17.11 Unilateral primary osteoarthritis, right knee (principal)
CPT/HCPCS: 73562

== ENCOUNTER 2025-02-13 12:08 | Outpatient (REF) | payer MEDICARE, SELFPAY ==
[2025-02-13 22:18] LABS: TSH (W/Ref FT4) 0.68 uIU/mL (0.36-3.74); Vitamin B12 289 pg/mL (193-986); Vitamin D 25 Total 38 ng/mL (30-100)
[2025-02-13 22:27] LABS: Folate > 20.0 ng/mL (8.6-20.0)
== END 2025-02-13 12:09 | disposition home or self-care (01) ==
LOC: NCHCN 12:08
PROVIDERS: PCP Family Medicine; Visit Provider Family Medicine
DX: F51.04 Psychophysiologic insomnia (principal); Z71.1 Person with feared health complaint in whom no diagnosis is made
CPT/HCPCS: 82306; 82607; 82746; 84443

== ENCOUNTER 2025-06-28 10:20 | Outpatient (CLI) | payer MEDICARE, SELFPAY ==
--- NOTE | 2025-06-28 10:00 | DI.RAD_ITS ---
Exam(s) XR WRIST RT COMPLETE EXAM: XR WRIST RT COMPLETE CLINICAL HISTORY: wrist pain. TECHNIQUE: 2D digital imaging was performed. Three views. COMPARISON: No exams were available for comparison FINDINGS: BONES: No acute fracture is present. No bony destructive lesion is seen. JOINTS: The carpal bones are normally aligned. There are minimal degenerative changes at the 1st carpal metacarpal joint. SOFT TISSUE: Normal. IMPRESSION: Minimal degenerative changes at the 1st carpal metacarpal joint DATA REPOSITORY: RADIATION DOSE DELIVERED:
--- NOTE | 2025-06-28 10:00 | DI.RAD_ITS ---
Exam(s) XR STANDING ALIGNMENT EXAM: XR STANDING ALIGNMENT CLINICAL HISTORY: surgical planning. TECHNIQUE: 2D digital imaging was performed. Standing AP views were performed from the pelvis through the ankles. COMPARISON: CR XR KNEE RT 3V AP,LAT,VAN from 02/01/2025 FINDINGS: BONES: No acute fracture is present. No bony destructive lesion is seen. Leg length discrepancy: There is a nearly 2 cm overall leg length discrepancy at the level of the femoral heads with the left femoral head projecting superior to the right.. JOINTS: Knees: There is severe narrowing of the medial femoral tibial joint space question mild varus angulation. The left knee joint spaces are maintained. The ankle joints are unremarkable. The hip joints are unremarkable. SOFT TISSUE: Normal. 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 Significant leg length discrepancy. DATA REPOSITORY: RADIATION DOSE DELIVERED:
== END 2025-06-28 10:21 | disposition home or self-care (01) ==
LOC: DIORS 10:21
PROVIDERS: PCP Family Medicine; Referring Provider Family Medicine; Visit Provider Student in an Organized Health Care Education/Training Program
DX: M17.11 Unilateral primary osteoarthritis, right knee (principal); M25.461 Effusion, right knee; M25.531 Pain in right wrist
CPT/HCPCS: 99214; 73110; 77073

== ENCOUNTER 2025-06-28 11:33 | Outpatient (CLI) | payer MEDICARE, SELFPAY ==
[2025-06-28 11:14] LABS: ESR 9 mm/hr (0-20)
[2025-06-28 11:15] LABS: HCT 41.2 % (40.0-50.0); HGB 14.1 g/dL (13.5-17.5); MCH 31.8 pg (27.0-33.0); MCHC 34.2 % (32.0-36.0); MCV 93 fL (80-95); MPV 8.6 fL (8.0-11.0); Platelet Count 333 10^3/uL (130-400); RBC 4.44 10^6/uL (4.36-5.78); RDW 11.7 % (11.8-14.1); RDW-SD 39.6 fL; WBC 8.68 10^3/uL (4.4-10.8)
[2025-06-28 11:55] LABS: Anion Gap 6.5 mmol/L (3-11); BUN 10 mg/dL (7-18); CO2 30.5 mmol/L (21.0-32.0); Calcium 9.0 mg/dL (8.5-10.1); Chloride 99 mmol/L (98-107); Estimated GFR 93.61 (mL/min/1.73m2); Glucose 106 mg/dL (74-106); Potassium 4.3 mmol/L (3.5-5.1); Sodium 136 mmol/L (136-145)
[2025-06-28 12:01] LABS: C-Reactive Protein < 0.50 mg/dL (<or=0.5)
[2025-06-29 11:03] LABS: Lyme Ab w Rflx to Lyme Confirm Negative (Negative)
[2025-06-30 21:36] LABS: B. miyamotoi PCR Negative (Negative); Babesia divergens/MO-1 Negative (Negative); Ehrlichia muris eauclairensis Negative (Negative)
== END 2025-06-28 11:34 | disposition home or self-care (01) ==
LOC: LBO 11:34
PROVIDERS: Student in an Organized Health Care Education/Training Program; PCP Family Medicine; Visit Provider Physician Assistant
DX: M25.461 Effusion, right knee (principal); Z01.818 Encounter for other preprocedural examination
CPT/HCPCS: 36415; 80048; 85027; 85652; 87798; 86140; 86618

== ENCOUNTER 2025-07-10 08:11 | Day surgery (SDC) | payer MEDICARE, SELFPAY ==
[2025-07-10] VITALS (30 sets, daily range): BP systolic 111–136; BP diastolic 65–91; PULSE 64–85; RESP 8–18; TEMP 36.1–36.4; O2SAT 93–100; BMI 29.1
--- NOTE | 2025-07-10 07:12 | W.PM.DSUDISC ---
Date of service: 07/10/25 Discharge Plan Disposition Patient Disposition: Home Condition: Good Discharge Details Reason For Visit: Right knee DJD Attending Provider: Jovani Hart Primary Care Provider: Russell Benoit Home Meds and New Rx's Prescriptions: New acetaminophen 500 mg tablet 1,000 mg PO Q8H PRN Qty: 90 0RF Rx Instructions: Take two tablets up to every 8 hours as needed for pain aspirin 81 mg tablet,delayed release (DR/EC) 81 mg PO BID 30 Days Qty: 60 0RF celecoxib [Celebrex] 200 mg capsule 200 mg PO BID PRNQty: 60 0RF Rx Instructions: Take one tablet twice daily for pain and inflammation docusate sodium [Colace] 100 mg capsule 100 mg PO BID Qty: 28 0RF pantoprazole 40 mg tablet,delayed release (DR/EC) 40 mg PO DAILY Qty: 14 0RF Rx Instructions: Take one tablet once daily dexamethasone 4 mg tablet 4 mg PO DAILY Qty: 2 0RF Rx Instructions: Take one tablet once daily for two days gabapentin 300 mg capsule 300 mg PO QHS Qty: 14 0RF Rx Instructions: Take one tablet at bedtime oxycodone 5 mg tablet 5 mg PO Q4H PRNQty: 18 0RF Rx Instructions: Take one tablet up to every 4 hours as needed for severe postoperative pain Continued atorvastatin 20 mg tablet 20 mg PO QHS bisacodyl [Dulcolax (bisacodyl)] 5 mg tablet,delayed release (DR/EC) 5 mg PO ONCE Qty: 4 0RF Rx Instructions: Take per colonoscopy instructions provided by ordering providers office polyethylene glycol 3350 17 gram/dose powder 17 g PO ONCE Qty: 238 0RF Rx Instructions: Take per colonoscopy instructions provided by ordering providers office tamsulosin 0.4 mg capsule 0.4 mg PO DAILY magnesium 250 mg tablet 250 mg PO DAILY mecobalamin (vitamin B12) 1,000 mcg tablet,chewable 1,000 mcg PO DAILY qgjzymu-jtlhp-gxm-ebg-maao-aci 10-200-50 mg tablet, IR and ER, biphasic 1 tab PO DAILY albuterol sulfate 90 mcg/actuation HFA aerosol inhaler 1 inh inhalation ONCE fluticasone furoate [Arnuity Ellipta] 50 mcg/actuation blister with device 1 inh inhalation DAILY PRN fexofenadine [Patricia Allergy] 60 MG tablet 60 mg PO PRN azelastine 137 mcg (0.1 %) spray,non-aerosol 1 spray intranasal BID 30 Days Qty: 30 3RF Rx Instructions: administer into each nostril montelukast 10 mg tablet 10 mg PO DAILY 90 Days Qty: 90 2RF Discontinued ibuprofen 100 MG tablet 200 mg PO Q6H PRN naproxen 250 MG tablet 250 mg PO BID acetaminophen 500 mg capsule 500 mg PO Q6H PRN Discharge Instructions Additional Instructions: Total Knee Discharge Instructions Activity: The most important activity is to walk and to work on gentle motion (both flexion and extension). You should try to take short walks a few times a day. It is important that when resting you work on keeping the knee straight. Avoid putting a pillow behind the knee as this will encourage flexion. Work on range of motion exercises as provided by Physical Therapy. - Start outpatient physical therapy within 2 weeks. - You should wear the MATEO hose on both legs for 2 weeks. You may remove these at night. You may also use any compression sock in place of the MATEO hose. - Utilize [employer] to review exercises, see videos on exercises and obtain basic information pertaining to your surgery and your recovery. Dressing: Remove the Ibrahima wrap by 2 days after your surgery and put on the MTAEO stocking given to you from the hospital. Keep the surgical dressing (underneath the IBRAHIMA wrap) in place for at least one week. After the first week it may be removed and replaced with light gauze and tape or nothing. The wound and dressing may get wet after 3 days but avoid soaking the dressing or otherwise it will need to be changed. Many people prefer covering the dressing with cling wrap (saran wrap) to minimize it from getting soaked. If it gets wet, just pat dry. If it starts to peel off then it will need to be changed. Medications: - You should take Tylenol and anti-inflammatory Celebrex as your primary pain control medications. If the Celebrex is too expensive or not covered, please call the office for another alternative (Advil/Ibuprofen or Naproxen/Aleve) - You have been prescribed a stronger pain medication Oxycodone for breakthrough pain, take as needed as prescribed. - You have also been prescribed a stomach acid reduction agent Pantoprozole to help reduce stomach acid and reflux. - You have been prescribed Gabapentin to take at night for restlessness and nerve pain. - You will be taking Aspirin 81mg twice a day for DVT prevention unless instructed otherwise. - You have also been prescribed Decadron to take to control post-operative nausea and pain. You will start this tomorrow. - If you have constipation you should take Colace (which has been prescribed) or Miralax (which is available [id number]). It takes most people 3-4 days to have a bowel movement. Follow-up: 2 weeks If you have any acute concerns or questions, please do not hesitate to contact the office at [phone]. You may contact Dr. Hart with any questions after hours through the hospital at [phone] or on his cell phone at [phone]. Referrals: Jovani Hart MD [ [facility] STAFF PHYSICIAN, Orthopaedic Surgical] Equipment/Supplies: Walker Activity:: Elevate Remove Dressings/Wound Care:: Do Not Remove Shower/Bathe:: Cover Diet:: As Tolerated Discharge Orders Discharge Orders: Discharge Order (Routine); Ordered 07/10/25 Ordered By: Sade Burnette
--- NOTE | 2025-07-10 08:24 | W.ANESPRE ---
General Info Date of Service Date Performed: 07/10/25 Height: 6 ft Weight: 97.522 kg Body Mass Index (BMI): 29.1 Surgical Procedure: Operation Date: 07/10/25 11:25 Proposed Procedure Side Surgeon p Knee Total Arthroplasty Right Jovani Hart MD Meds Allergies and Home Medications Allergies Allergy/AdvReac Type Severity Reaction Status Date / Time Environmental Allergy Unknown Other (See Uncoded 07/10/25 08:38 Comment) Home Medication ?Medication ?Instructions ?Recorded fexofenadine 60 mg tablet (Patricia 60 mg PO PRN 05/28/14 Allergy) atorvastatin 20 mg tablet 20 mg PO QHS 03/02/24 bisacodyl 5 mg tablet,delayed 5 mg PO ONCE #4 tabs 03/02/24 release (Dulcolax (bisacodyl)) polyethylene glycol 3350 17 17 g PO ONCE #238 grams 03/02/24 gram/dose oral powder albuterol sulfate 90 mcg/actuation 1 inh inhalation ONCE 07/07/24 aerosol inhaler fluticasone furoate 50 1 inh inhalation DAILY PRN 07/07/24 mcg/actuation blister powder for inhalation (Arnuity Ellipta) azelastine 137 mcg (0.1 %) nasal 1 spray intranasal BID 30 days #30 12/21/24 spray mL montelukast 10 mg tablet 10 mg PO DAILY 90 days #90 tabs 01/15/25 magnesium 250 mg tablet 250 mg PO DAILY 06/28/25 mecobalamin (vitamin B12) 1,000 1,000 mcg PO DAILY 06/28/25 mcg chewable tablet melatonin 10 mg-thean 1 tab PO DAILY 06/28/25 [id number]-fas-fgd rdvf-avuz-gni tablet,immed-ext rel tamsulosin 0.4 mg capsule 0.4 mg PO DAILY 06/28/25 acetaminophen 500 mg tablet 1,000 mg (2 x 500 mg) PO Q8H PRN 07/10/25 pain #90 tabs aspirin 81 mg tablet,delayed 81 mg PO BID 30 days #60 tabs 07/10/25 release celecoxib 200 mg capsule (Celebrex) 200 mg PO BID PRN #60 caps 07/10/25 dexamethasone 4 mg tablet 4 mg PO DAILY #2 tabs 07/10/25 docusate sodium 100 mg capsule 100 mg PO BID #28 caps 07/10/25 (Colace) gabapentin 300 mg capsule 300 mg PO QHS #14 caps 07/10/25 ibuprofen 400 mg tablet 400 mg PO Q6H 07/10/25 ondansetron 4 mg disintegrating 4 mg PO Q6H PRN #10 tabs 07/10/25 tablet oxycodone 5 mg tablet 5 mg PO Q4H PRN #18 tabs 07/10/25 pantoprazole 40 mg tablet,delayed 40 mg PO DAILY #14 tabs 07/10/25 release sublingual immunotherapy 07/10/25 Current Visit Medications: Current Medications Generic Name Dose Route Start Last Admin Trade Name Freq PRN Reason Stop Dose Admin Acetaminophen 1,000 mg 07/10/25 06:00 Acetaminophen 500 Mg Tab PO 08/08/25 23:59 PREOP JACIEL Celecoxib 400 mg 07/10/25 06:00 Celecoxib 200 Mg Cap PO 08/08/25 23:59 PREOP JACIEL Droperidol 0.625 mg 07/10/25 08:21 Droperidol 5 Mg/2 Ml Vial IVP 08/09/25 08:20 DIRECTED PRN Ephedrine Sulfate 0 mg 07/10/25 08:21 Ephedrine 25 Mg/5 Ml Syringe IVP 08/09/25 08:20 DIRECTED PRN Fentanyl 0 mcg 07/10/25 08:21 Fentanyl 100 Mcg/2 Ml Vial IVP 08/09/25 08:20 DIRECTED PRN Gabapentin 300 mg 07/10/25 06:00 Gabapentin 300 Mg Cap PO 08/08/25 23:59 PREOP JACIEL Hydromorphone HCl 0.5 mg 07/10/25 07:11 Hydromorphone 2 Mg/Ml Syr IVP 08/09/25 07:10 Q2H PRN PRN Hydromorphone HCl 0 mg 07/10/25 08:21 Hydromorphone 2 Mg/Ml Syr IVP 08/09/25 08:20 DIRECTED PRN Ringer's Solution 1,000 mls @ 80 mls/hr 07/10/25 06:00 IV 08/08/25 23:59 INFUSION JACIEL Cefazolin Sodium/Dextrose 2 gm in 50 mls @ 100 mls/hr 07/10/25 06:00 Ancef Duplex IVPB 08/08/25 23:59 PREOP JACIEL Tranexamic Acid/Sodium Chloride 1,000 mg in 100 mls @ 600 mls/hr 07/10/25 06:00 IVPB 08/08/25 23:59 PREOP JACIEL Cefazolin Sodium/Dextrose 1 gm in 50 mls @ 100 mls/hr 07/10/25 08:00 Ancef Duplex IVPB 07/11/25 00:29 Q8H JACIEL IV Miscellaneous Supplies 1 each 07/10/25 06:00 Iv Access IV 08/08/25 23:59 DIRECTED JACIEL Naloxone HCl 0 mg 07/10/25 08:21 Naloxone 0.4 Mg/Ml Vial IVP 08/09/25 08:20 PRN PRN Oxycodone HCl 0 mg 07/10/25 07:11 Oxycodone 5 Mg Tab PO 08/09/25 07:10 Q3H PRN PRN Pain Sodium Chloride 0 ml 07/10/25 06:00 Normal Saline Flush 10 Ml Syr IV 08/08/25 23:59 PRN PRN Sodium Chloride 0 ml 07/10/25 06:00 Normal Saline 10 Ml Vial IJ 08/08/25 23:59 DIRECTED PRN Sterile Water 0 ml 07/10/25 06:00 Water,Injection,Sterile 10 Ml Vial IJ 08/08/25 23:59 DIRECTED PRN Tranexamic Acid 1,300 mg 07/10/25 07:11 Tranexamic Acid 650 Mg Tab PO 08/09/25 07:10 ONCE PRN postoperative PFSH Active Problems Active Problems: Problem Status Onset Code Tenosynovitis of right wrist Acute M65.931 Right wrist pain Acute M25.531 Effusion, right knee Acute M25.461 Coated tongue Acute K14.3 Tinnitus Acute H93.19 Arthritis of right knee Chronic M17.11 Allergic rhinitis due to other allergen Acute J30.89 Tendinitis of left rotator cuff Acute 10/09/16 M75.82 Postnasal drip Acute 03/04/16 R09.82 Postnasal drip Acute 10/30/13 R09.82 Allergic rhinitis due to pollen Chronic 10/07/15 J30.1 Allergic rhinitis Acute 10/30/13 J30.9 Allergic fungal sinusitis Acute 08/28/13 J30.89, B49 Medical History Medical History High cholesterol Surgical History Surgical History History of throat surgery ENT Dr. Umanzor, biopsies History of colonoscopy (~03/2024) Tobacco Smoking/Tobacco Use Status: Never Alcohol Alcohol Intake: current Alcohol intake frequency: 0-2 drinks per day Alcohol type: beer and wine Substance Use Substance use: Never Substance use type: does not use Vital Signs and Lab Results Lab Results Complete Blood Count: WBC, (4.4-10.8) 8.68 10^3/uL 06/28/25, 11:10 RBC, (4.36-5.78) 4.44 10^6/uL 06/28/25, 11:10 Hgb, (13.5-17.5) 14.1 g/dL 06/28/25, 11:10 Hct, (40.0-50.0) 41.2 % 06/28/25, 11:10 Plt Count, (130-400) 333 10^3/uL 06/28/25, 11:10 Complete Metabolic Panel: Sodium, (136-145) 136 mmol/L 06/28/25, 11:10 Potassium, (3.5-5.1) 4.3 mmol/L 06/28/25, 11:10 Chloride, (98-107) 99 mmol/L 06/28/25, 11:10 Carbon Dioxide, (21.0-32.0) 30.5 mmol/L 06/28/25, 11:10 BUN, (7-18) 10 mg/dL 06/28/25, 11:10 Creatinine, (0.70-1.30) 0.9 mg/dL 06/28/25, 11:10 Est GFR (CKD-EPI 2020), (mL/min/1.73m2) 93.61 06/28/25, 11:10 Calcium, (8.5-10.1) 9.0 mg/dL 06/28/25, 11:10 Glucose, (74-106) 106 mg/dL 06/28/25, 11:10 C-Reactive Protein, (<or=0.5) < 0.50 mg/dL 06/28/25, 11:10 Imaging and Studies Imaging and Studies Study information below may be from another EMR and interpreted by another provider. Please see original notes in EMR for more complete details. Pulmonary Function Summary: Date of service: 01/04/23 Time of Service: 12:59 Pulmonary Function Test Result Indications: Sawdust inhalation, dyspnea Interpretation Spirometry: There is no airflow limitation. There is no significant bronchodilator response. Impression Normal spirometry Clinical Correlation therefore is recommended. Anesthesia Assessment and Plan Anesthesia History Personal History: PONV Family History: No Family History of Anesthesia Complications Exercise Tolerance Exercise Tolerance: Metabolic Equivalents>4 Pertinent Negatives Pertinent Negatives: No Symptoms of GERD, No Major Cardiovascular Symptoms or Complaints, No Major Pulmonary Symptoms or Complaints and No History of CVA/TIA Cardiac & Pulmonary Exam Cardiac Exam: Normal S1/S2 Heart Sounds Pulmonary Exam: Clear Bilateral Breath Sounds Implantable Cardiac Device Does patient have a Pacemaker or an ICD?: No Airway Exam Known Difficult Airway: No Mallampati Class: 2 Mouth Opening: Normal (> 3cm) Thyromental Distance: Less than 3 cm Neck Range of Motion: Full ROM Neck Circumference: Normal Teeth Condition: Normal Dentition ASA Classification ASA Score: ASA 2 Emergency Case?: No NPO Status NPO Status: NPO Clears >2 hours, Solids >8 hours Anesthesia Plan Resuscitation Status: Full Code Anesthesia Technique: Spinal Anesthesia Airway Planned: Natural Airway Pain Management: Surgeon and patient request nerve block Monitors Used: Standard Monitors
[2025-07-10] MEDS: Acetaminophen 500 MG TAB 1000 MG PO (09:04)
[2025-07-10] MEDS: Celecoxib 200 MG CAP 400 MG PO (09:05)
[2025-07-10] MEDS: Gabapentin 300 MG CAP PO (09:05)
[2025-07-10] MEDS: Lactated Ringers 1,000 ML 80 ML IV (09:20)
--- NOTE | 2025-07-10 09:47 | W.ANESNERVE ---
Nerve Block Single Injection Procedure Date and Time Date Performed: 07/10/25 Procedure Start: 09:39 Location Where Procedure Performed Procedure Location: Day Surgery Unit Reason Performed: Postoperative Analgesia Requesting Provider: Jovani Hart Timeout Performed Timeout Performed: Yes Monitoring Used Blood Pressure, SpO2 and See EMR for corresponding vital signs Sterility Sterility: Hand Hygiene, Surgical Cap, Surgical Mask and Sterile Gloves Sedation Given During Procedure Sedation Given (Indicate Dose Given): Versed IV Dose:: 2mg Patient Mental Status Patient Mental Status: Awake Nerve Block 1st Nerve Block: Laterality: Right Block Type: Adductor Canal Ultrasound Image Saved?: Yes Needle / Catheter Used: 100mm SonoPlex II Local Anesthetic Bolus (Indicate Dose Given): Lidocaine used for local infiltration of skin, Bupivacaine 0.5% Dose:: 10ml and Exparel Dose:: 10ml Additives (Indicate Dose Given): None Ultrasound: Sterile probe cover and gel used Nerve Stimulator: Not Used Paresthesia: None Procedure Tolerated: No Complications and Patient tolerated well Procedure Outcome: Successful Performed By: Marva Alonzo Supervised By: Jeremiah Greene
[2025-07-10] MEDS: ceFAZolin 2 GM/50 ML BAG IVPB (10:28)
[2025-07-10] MEDS: TRANEXAMIC ACID/SOD. CHL. 1,000 MG/100 ML BAG 600 MG IVPB (10:32)
--- NOTE | 2025-07-10 10:50 | SYNOVIUM_PTH ---
PATIENT: Clay Gonzalez LOC: [facility] U#:[id number] AGE/SX: 69/M ROOM: RE07/10/[address]: Jovani Hart MD : 1955 BED: DIS: 07/10/2025 SPEC #: [id number] RECD: 07/10/25 12:36 STATUS: WEN REVeronique #: [id number] ROSHAN: 07/10/25 10:[address]: Jovani Hart DEPT: Surgical Specimen RECD BY: Coco Gunter ENTERED: 07/10/25 12:38 SP TYPE: SYNOVIUM OTHR DR: Russell Benoit Tissues: 1 - SYNOVIUM/IAL Procedures: GROSS AND MICRO LEVEL 4 Comments: [id number]
--- NOTE | 2025-07-10 12:02 | W.PM.OP ---
Operative Note Operative Note PRE-OP DIAGNOSIS: Right Knee Osteoarthritis POST-OP DIAGNOSIS: same (and Significant Synovitis) PROCEDURE: Right Total Knee Replacement with Complete Synovectomy SURGEON: Jovani Hart CASE MANAGEMENT SPECIALIST: Sade Burnette ANESTHESIA TYPE: Spinal Refer to Anesthesia Record ESTIMATED BLOOD LOSS: 250 PATHOLOGY: other (Synovial biopsy) TOURNIQUET TIME: 0 COMPLICATIONS: None Patient was transported to: PACU Patient's condition: stable Implants: 1. Depuy Attune Cementless Cruciate Retaining Femoral Component, Size 8 2. Depuy Attune Cementless Fixed Bearing Tibial Component, Size 7 3. Depuy Attune 8x7mm CR/FB Poly 4. Depuy Attune Patellar Component, Size 38mm Indications: I have seen Isac in clinic for symptoms of knee arthritis, confirmed with radiographic findings. He has exhausted nonoperative methods and was having significant limitations in daily function and desired better function and less pain. I discussed the technical details of a knee replacement. I explained the risks of the procedure to include, but not limited to, bleeding, infection, pain, stiffness, fracture, damage to nerves and vessels, damage to muscles and tendons, loosening, need for repeat procedure, blood clot and cardiopulmonary demise. Despite these risks, Isac elected to proceed. Findings: There was significant signs of arthritis throughout the knee, mostly involving the medial compartment, although present laterally and on the patella. He had abundant hypertrophic synovitis throughout the entirety of the knee in all compartments with some subtle areas of necrosis. No purulence. Synovial tissue was sent to pathology for evaluation. Procedure Description: Isac was greeted in the preoperative holding area where the correct side was identified and marked. The consent was reviewed with the patient and signed. The history and physical was updated. All questions were answered. Preoperative medications were administered: Acetaminophen 1000mg, Celebrex 400mg, and Gabapentin 300mg. An adductor canal block was then administered by the anesthesia team in the D[facility]. He was taken back to the operating room. A spinal anesthestic was then administered. The patient was placed into the supine position on the operating room table. Posts were placed for positioning during the procedure. All bony prominences were well padded. Prophylactic antibiotics in the form of Cefazolin were administered. 1g of Tranxemic Acid was given intravenously within 30 minutes of incision. The right leg was then prepped with Chloraprep and draped in a standard fashion with impervious stockinette. A second prep with Chloraprep was performed prior to application of Iodine impregnated skin protection. A timeout to confirm correct identity, side and site, procedure, allergies, anesthesia, and medical concerns was performed. With the knee in some flexion, a midline incision was made overlying the knee. Full thickness skin flaps were raised once the extensor mechanism was encountered. These were raised medially and laterally. Any bleeding was controlled with electrocautery. Once the extensor mechanism was fully exposed, a medial parapatellar arthrotomy was performed in a flexed position. All bleeding from the arthrotomy and the geniculate arteries was coagulated. A medial subperiosteal peel was performed with electrocautery to the midcoronal plane. The fat pad was removed while keeping the patellar tendon protected. There was abundant hypertrophic synovitis encountered in addition to a significant effusion. An aggressive synovectomy was performed throughout the entirety of the knee. A portion of the synovium was sent to pathology for evaluation. The knee was then flexed with the patella everted. The ACL and PCL were resected and the anterior horn of the lateral meniscus was transected. Large osteophytes from the tibia were removed. Large osteophytes from the femur were removed. Using a step drill, and based on preoperative templating, the femoral canal was entered. This was done with a step drill without any difficulty. The intramedullary distal femoral cut guide was inserted, set to a 5 degree valgus cut and 9mm cut thickness. The distal femoral cut guide was then held in position and pinned. With the soft tissues protected, the distal cut was performed. This was passed over a few times to ensure a planar cut. I then turned attention to the tibia. The extramedullary guide was placed onto the leg. The distal aspect was slid medial to adjust for position of center of ankle and stay in line with shaft of the tibia. Approximately 5 degrees of posterior slope was kept in the proximal cutting guide. The center of the guide was aligned with the PCL. The stylus was used to assess cut thickness. The medial side, most involved side, was set for a 4mm cut. This was then held in position and pinned into place with 2 additional pins and a cross pin for stability. The medial and lateral collateral ligaments were protected and the cut was performed. With this completed, it was assessed and noted to be of appropriate dimensions. The guide was removed. A spacer block was inserted and the knee was brought into extension. The 6mm spacer block provided full extension, without hyperextension and with stability of both the medial and lateral collateral ligaments was assessed. The pins from the femur and the tibia were then removed. The distal femur was then sized. The anterior stylus was placed onto the lateral ridge of the anterior femur. This indicated a size 8 femur. The external rotation of the guide was adjusted to 5 degrees to match the epicondylar axis, perpendicular to Fountain?s line. The 4-in-1 cutting guide was the placed. The posterior medial femur cut was evaluated and appeared of good thickness. The spacer block was inserted underneath the cutting guide and stability was confirmed in 90 degrees of flexion. An ger wing was used to confirm appropriate position of the anterior cut to avoid notching. This cutting guide was ensured to be flush on the cut surface and then pinned into place with headed pins. While protecting the soft tissues, quad tendon, and collateral ligaments, the anterior and posterior cuts were performed with a saw. The central two pins were removed and the posterior and anterior chamfers were cut next. The notch-cutting guide was placed. This was pinned to lateralize the femoral component as much as possible while keeping it flush on the cut surface. This was then pinned into position. A reciprocating saw was used to make the notch cut. A rasp smoothed the cut surfaces. The medial and lateral menisci were removed. A trial femoral component was then inserted, impacted down to the cut surfaces, and the lug holes were drilled. A provisional trial tibial component was placed and the knee was brought through range of motion. The polyethylene was trialed until there was good flexion and extension with excellent stability to the medial and lateral collaterals. The patella was tracking without thumbs. A size 7mm polyethylene component provided the best range of motion and stability with less than 2mm gapping with medial and lateral stress and full extension without significant hyperextension. The tibial cut surface was fully exposed. The tibia was then sized as a 7. The tibia had been previously marked during trialing to correspond to the center of the tibial component to help with rotation. The trial was aligned to this shantanu, approximately rotated to the medial 1/3rd of the tibial tubercle. The trial was pinned into place. The tibia was prepared with a reamer and a keel punch and lug holes. The knee was then brought into extension and the patella was measured as 24mm. Using the patellar clamp and cut guide, this was resected to a flat surface with at least 13mm of thickness remaining. The size 38mm patella fit the best. This was oriented and then clamped into position. The lugs were drilled. The trial components were removed. The final components were opened on the back table. The periosteal and capsular tissues, especially posteriorly, around the knee were then systematically injected with a periarticular cocktail consisting of 246mg of Ropivacaine, 0.5mg of Epinephrine, 0.08mg of Clonidine, and 30mg of Ketorolac, diluted to 100cc. On the back table, with the implants opened. The cement was mixed. One batch of high viscosity cement was prepared with vacuum assistance. After the cement was ready a small amount was placed on the cut surface of the patella and the patellar button was clamped into position and held. The cementless knee components were placed. Starting with the tibial component, the tibia was subluxed anteriorly and the lug holes of the component were lined up. The tibia was then impacted with an impactor and mallet until the tibial component was in contact with the tibia. Then, the femoral component was inserted. The lug holes were aligned and the component was impacted into position. The final polyethylene component was inserted. The knee was irrigated with Surgiphor Betadine solution. This was allowed to sit in the knee for 3 minutes and then it was irrigated out with saline. After the cement had finally cured, approximately 15min, the clamp was removed from the patella and the knee was taken through range of motion. The patella was tracking with a no-thumbs technique. A complete synovectomy was performed around the periphery of the patella. The capsule was then reapproximated with a No. 1 Vicryl at multiple locations. The capsule was finally closed with a No. 2 Stratafix, barbed suture. The second dosing of 1g TXA was started. Deep tissues were then reapproximated with 0 Vicryl and 2-0 Vicryl. The skin was closed with a running 3-0 Monocryl in a subcuticular fashion. This was reinforced with skin glue. A Mepilex silver dressing was applied along with a tigp-he-ictip MARIMAR wrap. A CryoCuff was applied. Isac was transferred to the hospital bed without difficulty an suffering no apparent complication. Isac has a good prognosis. Physical therapy will start today and without restrictions, weight-bearing as tolerated. Aspirin 81mg BID will be used for DVT prophylaxis. Date of Procedure: 07/10/25
--- NOTE | 2025-07-10 12:47 | W.ANESPOSTOP ---
Postoperative Evaluation Date, Time and Location Date Performed: 07/10/25 Time Performed: 12:47 Patient Location: PACU Vital Signs Most Recent Imported Vital Signs: Most Recent Vital Signs Temp Pulse Resp BP Pulse Ox 36.3 C L 67 16 111/68 97 07/10/25 12:40 07/10/25 12:40 07/10/25 12:40 07/10/25 12:37 07/10/25 12:40 Pain Score Most Recent Pain Score: Most Recent Pain Score Pain Level 0 07/10/25 12:40 Assessment Mental Status: Awake (Alert & Oriented to Patient Baseline) Airway and Respiratory Function: Patent airway with normal (patient baseline) respiratory exam Cardiovascular Function: Hemodynamically Stable Hydration Status: Adequately Hydrated Nausea & Vomiting: No Nausea or Vomiting Pain: Pt. Denies Any Pain Peripheral Nerve Block: Regional nerve block not resolved at time of post operative discharge
--- NOTE | 2025-07-10 14:51 | PT.INIE ---
PT Notes Visit Reasons: Right knee DJD Physical Therapy Day Surgery Initial Evaluation Date:07/10/2025 Referring Doctor: Sade Burnette NP/Dr. Hart PT Orders: PT CONSULT: Status post Ortho surgery Precautions: WBAT right LE Patient Profile/Admitting Diagnosis: Patient is a 69-year-old male presenting status post elective right TKA by Dr. Hart on 07/10/2025. Postop uncomplicated PMHX: Tenosynovitis of right wrist, right wrist pain, effusion right knee, tendinitis, arthritis right knee, rhinitis Social History/Home Situation: Patient resides in multilevel home 1 platform step to enter flight of stairs with a rail to second-floor patient will be staying on first level of home. Patient independent ADLs self-care, home management positive driving Equipment Owned/DME: Cane fitted for FWW Subjective: Patient reports his knee is very painful on the back Objective: [] General Observation: Patient presented semireclined on stretcher Cryo/Cuff to right knee Mental Status: Alert and oriented x 4, able to follow instructions, cooperative, agreeable to participate in eval Pain: Right knee 3/10 ROM: [] Right Upper Extremity: WFL Left Upper Extremity: WFL Right Lower Extremity: Hip and ankle within normal limits, knee -8 to 88 degrees Left Lower Extremity: WFL Strength: [] BUE: 5/5 Right Lower Extremity: Hip flexion: 3 -/5; hip abduction: 3 -/5; hip extension: 3/5; knee extension: 3 -/5; knee flexion: 2+/5 ankle DF: 3 /5 ; ankle PF: 3 /5 Left Lower Extremity: 5/5 Sensation: [] Bed Mobility/Transfers: [] Supine to sit SBA Sit to stand SBA with cues to push up from surface Stand to sit SBA with cues to reach back Bed to chair SBA with FWW Gait: Ambulated with FWW 150 feet intermittent cues for quad activation mid stance on right. Reduced knee flexion during swing phase on right SBA Stairs: 3 4 steps? and 2 6 steps with rails SBA with continuous cues for sequencing step to pattern Balance: [] Static Sitting: Normal Dynamic Sitting: Good Static Standing: Good with upper extremity support Dynamic Standing: Fair plus with upper extremity support Special Tests: [] Mobility Limitations Standardized Measure [] [facility] AM-PAC 6 clicks Basic Mobility Inpatient Short Form: [] Raw Score: 23 CMS Score: 11.20% Informed Consent/Education: Patient instructed in purpose of PT consult. Treatment: [id number] packet containing TKA exercise protocol has been given to patient. Education and training on initial set of exercises that can be done at home have been completed with patient. Simulated car transfer with providing assistance, provided with education on sequencing for stairs Assessment: Patient is a 69-year-old male who presents with clinical signs and symptoms consistent with current/admitting diagnoses that have resulted to mobility limitations, gait instability, generalized weakness, and impairment of motor control as demonstrated by the following impairment level findings: 1. Decreased strength to right knee major muscle groups 2. Impaired standing balance 3. Limitation of joint range of motion in right knee 4. Pain right knee 5. Impaired functional activity tolerance Impairments are contributing to the following functional limitations: 1. Inability to safely ambulate without assistive device 2. Increase completion time for mobility ADL performance 3. Increased fall risk 4. Difficulty performing stairs without assistance Patient is assessed as a low complexity based on the following: History: 69-year-old male with impairment level findings, functional limitations, and past medical history as indicated above Examination: Demonstrable impairment in strength, balance, and mobility level with underlying impairments and functional limitations as documented above Presentation: stable/evolving Decision Making: low Goals: N/A. PT evaluation and 1-2 treatment sessions only for functional mobility training using recommended AD and for HEP instruction. Plan of Care/Treatment Plan: N/A. PT evaluation and 1-2 treatment session only for functional mobility training using recommended AD and for HEP instruction. DISCHARGE RECOMMENDATIONS: Home with HEP and outpatient PT as scheduled TREATMENT CODE/TIME: [id number] Thank you for the opportunity to participate in the care of this patient. Claire Eric, PT [facility]
== END 2025-07-10 15:15 | disposition home or self-care (01) ==
LOC: SUR 08:11
PROVIDERS: PCP Family Medicine; Visit Provider Student in an Organized Health Care Education/Training Program
PROC: (CPT 27447; principal; 2025-07-10 11:15)
DX: M17.11 Unilateral primary osteoarthritis, right knee (principal); M65.961 Unspecified synovitis and tenosynovitis, right lower leg; G89.18 Other acute postprocedural pain
CPT/HCPCS: 27447; 64447; 88305; 97161; 97530; C1776; J0665; J0666; J0690; J1100; J2250; J2371; J2401; J2405; J2704; J3475

== ENCOUNTER 2025-07-23 12:20 | Outpatient (CLI) | payer MEDICARE, SELFPAY ==
--- NOTE | 2025-07-23 11:00 | DI.RAD_ITS ---
Exam(s) XR STANDING ALIGNMENT XR KNEE RT 1V EXAM: XR STANDING ALIGNMENT CLINICAL HISTORY: 1ST POST OP S/P R TKA. TECHNIQUE: 2D digital imaging was performed. Five images were obtained. COMPARISON: CR XR KNEE RT 3V AP,LAT,VAN from 02/01/2025 CR XR WRIST RT COMPLETE from 06/28/2025 CR XR STANDING ALIGNMENT from 06/28/2025 FINDINGS: BONES: The hips are well maintained. Since the prior examination, the patient has undergone a right total knee arthroplasty. The orthopedic hardware appears in good position. There is no evidence of loosening. The left knee is well maintained. The ankles are well maintained.There is no significant leg length discrepancy. SOFT TISSUE: Normal. IMPRESSION: Unremarkable right total knee arthroplasty. DATA REPOSITORY: RADIATION DOSE DELIVERED:
== END 2025-07-23 12:21 | disposition home or self-care (01) ==
LOC: DIORS 12:21
PROVIDERS: PCP Family Medicine; Referring Provider Family Medicine; Visit Provider Physician Assistant
DX: Z47.1 Aftercare following joint replacement surgery (principal); Z96.651 Presence of right artificial knee joint
CPT/HCPCS: 99024; 73560; 77073

== ENCOUNTER → 2025-08-23 09:05 | Outpatient (BNVA) | payer MEDICARE, SELFPAY | PROVIDERS: PCP Family Medicine; Referring Provider Family Medicine; Visit Provider Physician Assistant | DX: Z47.1 Aftercare following joint replacement surgery (principal); Z96.651 Presence of right artificial knee joint | CPT/HCPCS: 99024 ==